=== PATIENT | male | born 1960 | race Caucasian/White ===

== ENCOUNTER 2017-03-13 18:12 | Emergency (ER) | payer OTHER ==
[~2017-03-13] VITALS: Ht 182.9 cm; Wt 83.9 kg
--- NOTE | 2017-03-13 18:25 | NUR ---
pt awake now, smiling, and confirming his name. reluctant to give more info at this time. no sign of distress. vs stable.pt eubreathing
[2017-03-13] MEDS ORDERED: VANCOMYCIN IV 1,000 MG in IV DEXTROSE 5% 250 ML IV ONE (19:15)
[2017-03-13] MEDS ORDERED: VANCOMYCIN IV 200 ML ONE (19:32)
[2017-03-13 20:03] LABS: BILIRUBIN,DIRECT 0.1 mg/dL (0.0-0.2); BILIRUBIN,TOTAL 0.3 mg/dL (0.2-1.0); CREATININE 0.7 mg/dL (0.6-1.3); POTASSIUM 3.7 mmol/L (3.5-5.1); TOTAL PROTEIN, SERUM 7.7 g/dL (6.4-8.2)
[2017-03-13 20:39] LABS: HEMATOCRIT 42.9 % (40-50); HEMOGLOBIN 14.4 G/DL (14.0-18.0); MEAN CORPUSCULAR HEMOGLOBIN 33.5 UUG (27.0-31.0); MEAN CORPUSCULAR VOLUME 99.7 FL (82.0-92.0); WHITE BLOOD COUNT (AUTO) 6.3 K/UL (4.0-11.2)
[2017-03-13 20:40] LABS: BASOPHILS % (AUTO) 0.2 % (0.0-2.0); EOSINOPHILS # (AUTO) 0.2 K/uL (0.0-0.7); EOSINOPHILS % (AUTO) 3.2 % (0.0-7.0); LYMPHOCYTES # (AUTO) 1.6 K/UL (0.8-4.8); LYMPHOCYTES % (AUTO) 24.9 % (20.5-51.5); MEAN CORPUSCULAR HGB CONC 34 g/dL (32.0-37.0); MONOCYTES # (AUTO) 0.6 K/UL (0.1-1.30); MONOCYTES % (AUTO) 9.5 % (0.0-11.0); NEUTROPHILS # (AUTO) 3.9 K/UL (1.8-8.9); NEUTROPHILS % (AUTO) 62.2 % (38.5-71.5); PLATELET COUNT (AUTO) 135 K/UL (150-450)
--- NOTE | 2017-03-13 21:11 | NUR ---
Call placed to [facility], Dr. Wells will be paged.
[2017-03-13 21:39] LABS: *BILIRUBIN,URIN NEGATIVE (NEGATIVE); *BLOOD, URINE NEGATIVE (NEGATIVE); *CLARITY,URINE SLIGHTLY CLOUDY (CLEAR); *COLOR,URINE YELLOW (YELLOW); *KETONES,URINE NEGATIVE (NEGATIVE); *PROTEIN,URINE NEGATIVE (NEGATIVE); *UROBILINOGEN,URINE 0.2 E.U./dl (NORMAL); LEUKOCYTE ESTERASE ,URINE NEGATIVE (NEGATIVE); NITRITE, URINE NEGATIVE (NEGATIVE); PH,URINE 5.5 (5.0-8.0); UGLUCOSE NEGATIVE (NEGATIVE)
[2017-03-13 21:44] LABS: BACTERIA,URINE NONE SEEN /HPF (NONE SEEN); RBC,URINE 0-3 /HPF (0-3); SQUAMOUS EPITHELIAL CELL,UR NONE SEEN /HPF (NONE SEEN); WBC,URINE 0-3 /HPF (0-3)
--- NOTE | 2017-03-13 22:23 | NUR ---
Patient's insurance is capitated to [facility] [place] speaking with designated MD (per insurance) regarding transfer or acceptance authorization.
--- NOTE | 2017-03-13 22:43 | NUR ---
Kumar escobedo in [facility] - 03/13/17 at 2244 by LETA Patient's clinical information faxed to Syed Whiting
--- NOTE | 2017-03-13 22:52 | NUR ---
Patient awake at this time, able to answer questions and follow commands, A/O x4, confused regarding how he was transported to the hospital. Patient remains intoxicated, education provided regarding his transportation to this hospital as well as his pending transfer to another hospital provided. Patient requested water, provided.
--- NOTE | 2017-03-13 23:28 | NUR ---
Call placed to [facility] regarding transfer, awaiting bed assignment at this time. They will contact this ER when a bed assignment is given.
--- NOTE | 2017-03-14 00:20 | NUR ---
Call placed to [facility] for transportation, ETA 3 hours.
--- NOTE | 2017-03-14 00:30 | NUR ---
Call placed to [employer] ([facility]), ETA 2 hours. Authorization Number [id number].
--- NOTE | 2017-03-14 02:26 | NUR ---
Patient Tranfers to outside Facility Physician: Dr. Rodney Location: [facility]
--- NOTE | 2017-03-14 02:41 | NUR ---
GAVE SBAR REPORT TO KARLA CHARGE NURSE FROM [facility]
== END 2017-03-14 02:43 | disposition short-term general hospital (02) ==
LOC: ER 18:14 → EDBD 18:14 → ER 03-14 02:43
DX: L03.113 Cellulitis of right upper limb (principal)
CPT/HCPCS: 36415; 70030-TC; 71010; 73090; 85025; 87086; 93005; A4663; G0480; J3370

== ENCOUNTER 2017-05-14 13:53 | Emergency (ER) | payer OTHER ==
[~2017-05-14] VITALS: Ht 172.7 cm; Wt 81.6 kg
[2017-05-14] MEDS ORDERED: PANTOPRAZOLE SODIUM 40 MG VIAL IV ONE (15:00)
[2017-05-14] MEDS ORDERED: IV NORMAL SALINE 1000 ML BAG IV ONE (15:00)
[2017-05-14] MEDS ORDERED: KETOROLAC TROMETHAMINE 30 MG INJ IVP ONE (15:00)
[2017-05-14] MEDS ORDERED: ALBUTEROL SULFATE 2.5 MG/3 ML NEBU NEB ONE (15:15)
[2017-05-14 15:25] LABS: BASOPHILS % (AUTO) 0.6 % (0.0-2.0); EOSINOPHILS # (AUTO) 0.1 K/uL (0.0-0.7); EOSINOPHILS % (AUTO) 0.8 % (0.0-7.0); HEMATOCRIT 48.3 % (40-50); HEMOGLOBIN 16.8 G/DL (14.0-18.0); LYMPHOCYTES # (AUTO) 1.6 K/UL (0.8-4.8); LYMPHOCYTES % (AUTO) 21.4 % (20.5-51.5); MEAN CORPUSCULAR HEMOGLOBIN 34.3 UUG (27.0-31.0); MEAN CORPUSCULAR HGB CONC 35 g/dL (32.0-37.0); MEAN CORPUSCULAR VOLUME 98.6 FL (82.0-92.0); MONOCYTES # (AUTO) 0.4 K/UL (0.1-1.30); MONOCYTES % (AUTO) 5.6 % (0.0-11.0); NEUTROPHILS # (AUTO) 5.6 K/UL (1.8-8.9); NEUTROPHILS % (AUTO) 71.6 % (38.5-71.5); PLATELET COUNT (AUTO) 206 K/UL (150-450); WHITE BLOOD COUNT (AUTO) 7.7 K/UL (4.0-11.2)
[2017-05-14] MEDS ORDERED: ALBUTEROL SULFATE 2.5 MG/3 ML NEBU ONE (15:29)
[2017-05-14 15:32] LABS: CREATININE 0.9 mg/dL (0.6-1.3); POTASSIUM 3.9 mmol/L (3.5-5.1)
[2017-05-14 15:38] LABS: BILIRUBIN,DIRECT 0.2 mg/dL (0.0-0.2); BILIRUBIN,TOTAL 0.9 mg/dL (0.2-1.0); TOTAL PROTEIN, SERUM 7.9 g/dL (6.4-8.2)
[2017-05-14] MEDS ORDERED: KETOROLAC TROMETHAMINE 30 MG INJ ONE (15:42)
[2017-05-14] MEDS ORDERED: PANTOPRAZOLE SODIUM 40 MG VIAL ONE (15:42)
--- NOTE | 2017-05-14 16:13 | NUR ---
Patient discharged to home in stable conditon. Written and verbal after care instructions given. Patient verbalizes understanding of instructions.pt says feels btter, requesting to be d/tanya. pt walks in steady gait, eubreathing.
[2017-05-14 16:14] VITALS: BP 101/81
[2017-05-14 16:25] LABS: *BILIRUBIN,URIN NEGATIVE (NEGATIVE); *BLOOD, URINE NEGATIVE (NEGATIVE); *CLARITY,URINE CLEAR (CLEAR); *COLOR,URINE YELLOW (YELLOW); *KETONES,URINE NEGATIVE (NEGATIVE); *PROTEIN,URINE NEGATIVE (NEGATIVE); *UROBILINOGEN,URINE 0.2 E.U./dl (NORMAL); LEUKOCYTE ESTERASE ,URINE NEGATIVE (NEGATIVE); NITRITE, URINE NEGATIVE (NEGATIVE); PH,URINE 7.5 (5.0-8.0); UGLUCOSE NEGATIVE (NEGATIVE)
[2017-05-14 17:15] LABS: MUCUS,URINE FEW /LPF (0-FEW); WBC,URINE 0-3 /HPF (0-3)
== END 2017-07-05 12:12 | disposition home or self-care (01) ==
LOC: ER 13:53
DX: K29.20 Alcoholic gastritis without bleeding (principal); J20.9 Acute bronchitis, unspecified; J44.0 Chronic obstructive pulmonary disease with (acute) lower respiratory infection; J44.1 Chronic obstructive pulmonary disease with (acute) exacerbation; F10.129 Alcohol abuse with intoxication, unspecified; F17.210 Nicotine dependence, cigarettes, uncomplicated
CPT/HCPCS: 36415; 70030-TC; 71010; 83690; 85025; 85730; 87086; 93005; A4663; C9113; G0480; J1885; J7030

== ENCOUNTER 2017-05-21 21:29 | Emergency (ER) | payer OTHER ==
[~2017-05-21] VITALS: Ht 172.7 cm; Wt 77.1 kg
[2017-05-21] MEDS ORDERED: IPRATROPIUM BROMIDE 0.5 MG/2.5 ML NEBU NEB ONE (22:00)
[2017-05-21] MEDS ORDERED: methylPREDNISolone SOD SUCC 125 MG/2 ML VIAL IV ONE (22:00)
[2017-05-21] MEDS ORDERED: ALBUTEROL SULFATE 2.5 MG/3 ML NEBU NEB ONE (22:00)
[2017-05-21] MEDS ORDERED: ALBUTEROL SULFATE 2.5 MG/ 0.5 ML NEBU ONE (22:12)
[2017-05-21] MEDS ORDERED: IPRATROPIUM BROMIDE 0.5 MG/2.5 ML NEBU ONE (22:12)
[2017-05-21] MEDS ORDERED: methylPREDNISolone SOD SUCC 125 MG/2 ML VIAL ONE (22:13)
[2017-05-21 22:19] LABS: BASOPHILS # (AUTO) 0.1 K/uL (0.0-8.0); BASOPHILS % (AUTO) 1.6 % (0.0-2.0); EOSINOPHILS # (AUTO) 0.3 K/uL (0.0-0.7); EOSINOPHILS % (AUTO) 5.4 % (0.0-7.0); HEMATOCRIT 45.2 % (40-50); LYMPHOCYTES # (AUTO) 1.8 K/UL (0.8-4.8); LYMPHOCYTES % (AUTO) 28.7 % (20.5-51.5); MEAN CORPUSCULAR HEMOGLOBIN 34.7 UUG (27.0-31.0); MEAN CORPUSCULAR HGB CONC 36 g/dL (32.0-37.0); MEAN CORPUSCULAR VOLUME 97.9 FL (82.0-92.0); MONOCYTES # (AUTO) 0.7 K/UL (0.1-1.30); NEUTROPHILS # (AUTO) 3.4 K/UL (1.8-8.9); NEUTROPHILS % (AUTO) 53.3 % (38.5-71.5); PLATELET COUNT (AUTO) 222 K/UL (150-450); RED BLOOD CELL COUNT(AUTO) 4.62 MIL/UL (4.7-6.1); WHITE BLOOD COUNT (AUTO) 6.3 K/UL (4.0-11.2)
[2017-05-21 22:26] LABS: ETHANOL 26 MG/DL (0-0)
[2017-05-21 22:28] LABS: CARBON DIOXIDE 26 mmol/L (21-32); CHLORIDE 101 mmol/L (98-107); CREATININE 0.7 mg/dL (0.6-1.3); GLUCOSE 86 mg/dL (74-106); POTASSIUM 3.8 mmol/L (3.5-5.1); UREA NITROGEN, BLOOD 12 mg/dL (7-18)
[2017-05-21 22:33] LABS: ALANINE AMINOTRANSFERASE 54 U/L (16-63); ALKALINE PHOSPHATASE 140 U/L (50-136); ASPARTATE AMINOTRANSFERASE 43 U/L (15-37); BILIRUBIN,DIRECT 0.1 mg/dL (0.0-0.2); BILIRUBIN,TOTAL 0.6 mg/dL (0.2-1.0); TOTAL PROTEIN, SERUM 7.5 g/dL (6.4-8.2)
[2017-05-21 22:34] LABS: ACETAMINOPHEN < 2.0 ug/mL (10-30)
[2017-05-21 22:40] LABS: THYROID STIMULATING HORMONE 1.063 mIU/mL (0.358-3.740)
--- NOTE | 2017-05-21 22:44 | NUR ---
SPOKE TO EDUARDO, CLINICAL SOCIOLOGIST ON-CALL CLINICIAN. WILL SEE PATIENT SHORTLY.
[2017-05-21 23:13] LABS: *BILIRUBIN,URIN NEGATIVE (NEGATIVE); *BLOOD, URINE NEGATIVE (NEGATIVE); *CLARITY,URINE CLEAR (CLEAR); *COLOR,URINE YELLOW (YELLOW); *KETONES,URINE NEGATIVE (NEGATIVE); *PROTEIN,URINE NEGATIVE (NEGATIVE); *UROBILINOGEN,URINE 0.2 E.U./dl (NORMAL); LEUKOCYTE ESTERASE ,URINE NEGATIVE (NEGATIVE); NITRITE, URINE NEGATIVE (NEGATIVE); PH,URINE 6.5 (5.0-8.0); UGLUCOSE NEGATIVE (NEGATIVE)
--- NOTE | 2017-05-21 23:28 | NUR ---
EDUARDO HERE TO EVALUATE PATIENT.
[2017-05-21 23:34] LABS: BACTERIA,URINE NONE SEEN /HPF (NONE SEEN); RBC,URINE 0-3 /HPF (0-3); SQUAMOUS EPITHELIAL CELL,UR NONE SEEN /HPF (NONE SEEN); WBC,URINE 0-3 /HPF (0-3)
[2017-05-21 23:38] LABS: *AMPHETAMINE, URINE NEGATIVE (NEGATIVE); *BARBITURATE, URINE NEGATIVE (NEGATIVE); *CANNABINOID, URINE NEGATIVE (NEGATIVE); *COCCAINE, URINE NEGATIVE (NEGATIVE); *OPIATE, URINE NEGATIVE (NEGATIVE); *PHENCYCLIDINE SCREEN,URINE NEGATIVE (NEGATIVE)
--- NOTE | 2017-05-22 00:02 | NUR ---
PATIENT ATTMEPTED TO WALK OUT THE ER, CAR KEYS TAKEN FROM PATIENT AT THIS TIME.
--- NOTE | 2017-05-22 00:02 | NUR ---
[employer] CALLED FOR PATIENT.
--- NOTE | 2017-05-22 00:15 | NUR ---
Patient discharged to home in stable conditon. Written and verbal after care instructions given. Patient verbalizes understanding of instructions. PATIENT DC'D WITH [facility].
--- NOTE | 2017-05-22 00:19 | NUR ---
[facility] HERE AND PICKED UP PATIENT. KEYS PROVIDED TO PATIENT.
[2017-05-22 00:21] VITALS: BP 116/80
== END 2017-05-22 00:22 | disposition home or self-care (01) ==
LOC: ER 21:36
DX: T42.71XA Poisoning by unspecified antiepileptic and sedative-hypnotic drugs, accidental (unintentional), initial encounter (principal); F10.20 Alcohol dependence, uncomplicated; J98.01 Acute bronchospasm; F17.210 Nicotine dependence, cigarettes, uncomplicated; F41.9 Anxiety disorder, unspecified; J44.9 Chronic obstructive pulmonary disease, unspecified; R06.00 Dyspnea, unspecified; Y92.89 Other specified places as the place of occurrence of the external cause
CPT/HCPCS: 36415; 71010; 80048; 80076; 80307; 81001; 83880; 84443; 84484; 85025; 85379; 93005; 94640; 96374; 99285; 99406; A4663; G0480 ×2; G0481; J2930; J3590; 70030-TC

== ENCOUNTER 2017-08-31 05:58 | Inpatient (IN) | payer OTHER ==
[~2017-08-31] VITALS: Ht 177.8 cm; Wt 77.1 kg
[2017-08-31] MEDS ORDERED: ADVAIR DISKU (06:09)
[2017-08-31] MEDS ORDERED: ALPRAZOLAM 2 MG TABLET (06:10)
[2017-08-31] MEDS ORDERED: HYDROCODONE APAP (06:10)
[2017-08-31] MEDS ORDERED: ADVAIR 250/50 DISKUS (06:10)
[2017-08-31] MEDS ORDERED: CITALOPRAM 20 MG (06:10)
[2017-08-31] MEDS ORDERED: ALBUTEROL SULFATE 2.5 MG/ 0.5 ML NEBU ONE (06:22)
[2017-08-31] MEDS ORDERED: IPRATROPIUM BROMIDE 0.5 MG/2.5 ML NEBU ONE (06:22)
[2017-08-31] MEDS ORDERED: ALBUTEROL SULFATE 2.5 MG/3 ML NEBU NEB ONE (06:30)
[2017-08-31] MEDS ORDERED: IPRATROPIUM BROMIDE 0.5 MG/2.5 ML NEBU NEB ONE (06:30)
[2017-08-31] MEDS ORDERED: methylPREDNISolone SOD SUCC 125 MG/2 ML VIAL IV ONE (06:30)
[2017-08-31] MEDS ORDERED: methylPREDNISolone SOD SUCC 125 MG/2 ML VIAL ONE (06:32)
[2017-08-31 06:40] LABS: BASOPHILS % (AUTO) 0.5 % (0.0-2.0); EOSINOPHILS # (AUTO) 0.1 K/uL (0.0-0.7); EOSINOPHILS % (AUTO) 0.6 % (0.0-7.0); HEMOGLOBIN 15.6 g/dL (12.5-16.3); LYMPHOCYTES # (AUTO) 2.2 K/uL (20.0-40.0); LYMPHOCYTES % (AUTO) 25.2 % (20.5-51.5); MEAN CORPUSCULAR HEMOGLOBIN 33.8 uug (23.8-33.4); MEAN CORPUSCULAR HGB CONC 35 g/dL (32.5-36.3); MEAN CORPUSCULAR VOLUME 95.5 fL (73.0-96.2); MONOCYTES # (AUTO) 0.4 K/uL (2.0-10.0); MONOCYTES % (AUTO) 4.3 % (0.0-11.0); NEUTROPHILS # (AUTO) 6.1 K/uL (1.8-8.9); NEUTROPHILS % (AUTO) 69.4 % (38.5-71.5); PLATELET COUNT (AUTO) 125 K/uL (152-348); WHITE BLOOD COUNT (AUTO) 8.8 K/uL (3.6-10.2)
[2017-08-31] MEDS ORDERED: PANTOPRAZOLE SODIUM 40 MG VIAL IV ONE (06:45)
[2017-08-31] MEDS ORDERED: PANTOPRAZOLE SODIUM 40 MG VIAL ONE (06:51)
[2017-08-31] MEDS ORDERED: ONDANSETRON 4 MG/2 ML VIAL ONE ×2 (06:51→07:14)
[2017-08-31 06:56] LABS: CREATININE 0.9 mg/dL (0.6-1.3); POTASSIUM 3.5 mmol/L (3.5-5.1)
[2017-08-31] MEDS ORDERED: ONDANSETRON 4 MG/2 ML VIAL IV ONE ×2 (07:00→07:15)
[2017-08-31 07:10] LABS: BILIRUBIN,DIRECT 0.3 mg/dL (0.0-0.2); BILIRUBIN,TOTAL 1.3 mg/dL (0.2-1.0); TOTAL PROTEIN, SERUM 7.3 g/dL (6.4-8.2)
[2017-08-31] MEDS ORDERED: IV NORMAL SALINE 100 ML ONE (07:11)
[2017-08-31] MEDS ORDERED: IOHEXOL 350 100 ML INFUS..BTL ONE (07:11)
[2017-08-31] MEDS ORDERED: MORPHINE SULFATE 4 MG/1 ML DISP.SYRIN ONE (07:14)
[2017-08-31] MEDS ORDERED: IV NORMAL SALINE 1000 ML BAG IV ONE (07:15)
[2017-08-31] MEDS ORDERED: MORPHINE SULFATE 4 MG/1 ML DISP.SYRIN IV ONE (07:15)
[2017-08-31] MEDS ORDERED: HYDROMORPHONE 4 MG/1 ML DISP.SYRIN ONE (09:38)
[2017-08-31] MEDS ORDERED: HYDROMORPHONE 1 MG/1 ML DISP.SYRIN IV ONE (09:45)
[2017-08-31 11:09] LABS: *BILIRUBIN,URIN NEGATIVE (NEGATIVE); *BLOOD, URINE Trace-lysed (NEGATIVE); *CLARITY,URINE CLEAR (CLEAR); *COLOR,URINE YELLOW (YELLOW); *KETONES,URINE 2+ (NEGATIVE); *PROTEIN,URINE TRACE (NEGATIVE); *UROBILINOGEN,URINE 0.2 E.U./dl (NORMAL); LEUKOCYTE ESTERASE ,URINE NEGATIVE (NEGATIVE); NITRITE, URINE NEGATIVE (NEGATIVE); UGLUCOSE NEGATIVE (NEGATIVE)
[2017-08-31 11:15] LABS: BACTERIA,URINE FEW /HPF (NONE SEEN); RBC,URINE 0-3 /HPF (0-3); SQUAMOUS EPITHELIAL CELL,UR FEW /HPF (NONE SEEN); WBC,URINE 0-3 /HPF (0-3)
[2017-08-31 11:40] VITALS: BP 147/72
[2017-08-31] MEDS ORDERED: LORAZEPAM 2 MG/1 ML VIAL IV SCH (13:45)
[2017-08-31] MEDS ORDERED: HYDROMORPHONE 1 MG/1 ML DISP.SYRIN IV PRN (13:45)
[2017-08-31] MEDS ORDERED: ONDANSETRON 4 MG/2 ML VIAL IV PRN (13:45)
[2017-08-31] MEDS ORDERED: ZOLPIDEM 5 MG TABLET PO PRN (13:45)
[2017-08-31] MEDS ORDERED: POTASSIUM CHLORIDE 20 MEQ in IV D5 1/2 NS 1000 ML 1,000 ML IV PRN (13:45)
[2017-08-31] MEDS ORDERED: ACETAMINOPHEN 325 MG TABLET PO PRN (13:45)
[2017-08-31] MEDS ORDERED: HYDROMORPHONE 4 MG/1 ML DISP.SYRIN IV PRN (14:00)
[2017-08-31 14:17] LABS: *AMPHETAMINE, URINE NEGATIVE (NEGATIVE); *BARBITURATE, URINE NEGATIVE (NEGATIVE); *CANNABINOID, URINE NEGATIVE (NEGATIVE); *COCCAINE, URINE NEGATIVE (NEGATIVE); *OPIATE, URINE POSITIVE (NEGATIVE); *PHENCYCLIDINE SCREEN,URINE NEGATIVE (NEGATIVE)
[2017-08-31 15:16] VITALS: BP 130/74
[2017-08-31] MEDS ORDERED: MORPHINE SULFATE 4 MG/1 ML DISP.SYRIN IV PRN (17:00)
[2017-08-31] MEDS ORDERED: FAMOTIDINE. 20 MG/2 ML VIAL IV SCH (21:00)
[2017-09-01] MEDS ORDERED: FOLIC ACID 1 MG TABLET PO SCH (09:00)
[2017-09-01] MEDS ORDERED: THIAMINE HCL 100 MG TABLET PO SCH (09:00)
[2017-09-01] MEDS ORDERED: MULTIVITAMINS,THERAPEUTIC TABLET PO SCH (09:00)
== END 2017-08-31 17:00 | disposition left against medical advice (07) | DRG 282 ==
LOC: ER 06:00 → MED 11:04 → TELE 11:09
PROVIDERS: ADMIT Internal Medicine; ATTEND Internal Medicine
DX: K85.20 Alcohol induced acute pancreatitis without necrosis or infection (principal); J84.9 Interstitial pulmonary disease, unspecified; I31.3 Pericardial effusion (noninflammatory); D69.6 Thrombocytopenia, unspecified; J44.1 Chronic obstructive pulmonary disease with (acute) exacerbation; J84.10 Pulmonary fibrosis, unspecified; K76.0 Fatty (change of) liver, not elsewhere classified; M43.16 Spondylolisthesis, lumbar region; F17.200 Nicotine dependence, unspecified, uncomplicated; J45.909 Unspecified asthma, uncomplicated; K22.9 Disease of esophagus, unspecified; F10.239 Alcohol dependence with withdrawal, unspecified; F10.229 Alcohol dependence with intoxication, unspecified; K29.20 Alcoholic gastritis without bleeding; F41.9 Anxiety disorder, unspecified; F32.9 Major depressive disorder, single episode, unspecified; Y90.3 Blood alcohol level of 60-79 mg/100 ml; F17.210 Nicotine dependence, cigarettes, uncomplicated
CPT/HCPCS: 36415; 70030-TC; 71045; 71275; 80307; 83690; 85025; 93005; A4663; C9113; G0480; J1170; J2060; J2270; J2405; J2930; J3480; J3490; J3590; J7040; Q9967

== ENCOUNTER 2017-10-02 08:45 | Emergency (ER) | payer OTHER ==
[~2017-10-02] VITALS: Ht 177.8 cm; Wt 77.1 kg
[~2017-10-02 08:45] MED LIST: ADVAIR 250/50 DISKUS; ADVAIR DISKU; ALPRAZOLAM 2 MG TABLET; CITALOPRAM 20 MG; HYDROCODONE APAP
[2017-10-02] MEDS ORDERED: LIDOCAINE HCL 2% 20 ML VIAL ONE (08:55)
[2017-10-02] MEDS ORDERED: LIDOCAINE HCL 1% 20 ML VIAL TP ONE (09:00)
--- NOTE | 2017-10-02 09:14 | NUR ---
MSE COMPLETED, PT D/C'D GHOME/ACI GIVEN, PT AMBULATED W/O DIFF/TOOK ALL BELONGINGS.
[2017-10-02 09:15] VITALS: BP 117/61
== END 2017-10-02 09:05 | disposition home or self-care (01) ==
LOC: ER 08:45
DX: S61.216A Laceration without foreign body of right little finger without damage to nail, initial encounter (principal); J45.909 Unspecified asthma, uncomplicated; F17.210 Nicotine dependence, cigarettes, uncomplicated; Z79.899 Other long term (current) drug therapy; Z79.891 Long term (current) use of opiate analgesic; W26.8XXA Contact with other sharp object(s), not elsewhere classified, initial encounter; Y93.89 Activity, other specified; Y92.89 Other specified places as the place of occurrence of the external cause; Y99.8 Other external cause status
CPT/HCPCS: A4217; A4663; J3490

== ENCOUNTER 2017-10-25 23:21 | Emergency (ER) | payer OTHER ==
[~2017-10-25] VITALS: Ht 172.7 cm; Wt 79.4 kg
--- NOTE | 2017-10-25 23:39 | NUR ---
DR. PRIETO AT BEDSIDE FOR MSE.
[2017-10-25 23:45] LABS: BASOPHILS # (AUTO) 0.1 K/uL (0.0-8.0); BASOPHILS % (AUTO) 1.2 % (0.0-2.0); EOSINOPHILS % (AUTO) 0.3 % (0.0-7.0); HEMOGLOBIN 16.7 g/dL (12.5-16.3); LYMPHOCYTES # (AUTO) 2.1 K/uL (20.0-40.0); LYMPHOCYTES % (AUTO) 28.7 % (20.5-51.5); MEAN CORPUSCULAR HEMOGLOBIN 34.4 uug (23.8-33.4); MEAN CORPUSCULAR HGB CONC 36 g/dL (32.5-36.3); MEAN CORPUSCULAR VOLUME 96.7 fL (73.0-96.2); MONOCYTES # (AUTO) 0.4 K/uL (2.0-10.0); MONOCYTES % (AUTO) 5.8 % (0.0-11.0); NEUTROPHILS # (AUTO) 4.7 K/uL (1.8-8.9); PLATELET COUNT (AUTO) 192 K/uL (152-348); RED BLOOD CELL COUNT(AUTO) 4.86 MIL/uL (4.06-5.63); WHITE BLOOD COUNT (AUTO) 7.4 K/uL (3.6-10.2)
--- NOTE | 2017-10-25 23:45 | NUR ---
PT AMBULATED TO ER WITH C/O BODY ACHE ALL OVER AND STATES "DOESN'T FEEL GOOD." AAOX3. ABLE TO SPEAK IN COMPLETE SENTENCES. SPEECH CLEAR. RESPONDS TO VERBAL + TACTILE STIMULI. RESPIRATIONS EVEN + UNLABORED. DENIES SOB/COUGH/CONGESTION. DENIES FEVER/CHILLS. DENIES CHEST PAIN. PT RESPIRATIONS EVEN + UNLABORED. SA02 95% ON 2L 02 VIA NC. Addendum: 10/26/17 at 0639 by TPADOLINA PT AMBULATED TO ER WITH C/O BODY ACHE ALL OVER AND STATES "DOESN'T FEEL GOOD." AAOX3. ABLE TO SPEAK IN COMPLETE SENTENCES. PT SMELLS OF ALCOHOL. SPEECH CLEAR. RESPONDS TO VERBAL + TACTILE STIMULI. RESPIRATIONS EVEN + UNLABORED. DENIES SOB/COUGH/CONGESTION. DENIES FEVER/CHILLS. DENIES CHEST PAIN. PT RESPIRATIONS EVEN + UNLABORED. SA02 95% ON 2L 02 VIA NC.
[2017-10-26 00:18] LABS: BILIRUBIN,DIRECT 0.3 mg/dL (0.0-0.2); BILIRUBIN,TOTAL 1.2 mg/dL (0.2-1.0); CREATININE 0.9 mg/dL (0.6-1.3); POTASSIUM 3.4 mmol/L (3.5-5.1); TOTAL PROTEIN, SERUM 7.9 g/dL (6.4-8.2)
--- NOTE | 2017-10-26 00:45 | NUR ---
PT TRYING TO GET OUT OF BED. PT BEING UNCOOPERATIVE WITH STAFF
[2017-10-26] MEDS ORDERED: LORAZEPAM 2 MG/1 ML VIAL ONE ×2 (00:48→02:04)
[2017-10-26] MEDS: LORAZEPAM 2 MG/1 ML VIAL IV ONE ×2 (00:51→02:04)
--- NOTE | 2017-10-26 00:57 | NUR ---
PT RESTING COMFORTABLY IN BED WITH EYES CLOSED. SA02 95% ON 2L O2 VIA NC.
[2017-10-26] MEDS: IV NORMAL SALINE 1000 ML BAG IV ONE (01:10)
--- NOTE | 2017-10-26 02:00 | NUR ---
PT UNCOOPERATIVE AND TRYING TO GET OUT OF BED. PT HAS UNSTEADY GAIT.
[2017-10-26] MEDS ORDERED: diphenhydrAMINE 50 MG/1 ML VIAL ONE (02:04)
[2017-10-26] MEDS ORDERED: HALOPERIDOL LACTATE 5 MG/1 ML VIAL ONE (02:04)
[2017-10-26] MEDS: HALOPERIDOL LACTATE 5 MG/1 ML VIAL IV ONE (02:06)
[2017-10-26] MEDS: diphenhydrAMINE 50 MG/1 ML VIAL IV ONE (02:08)
--- NOTE | 2017-10-26 02:20 | NUR ---
PT LEFT ER FOR CT SCAN & XRAY. VSS.
--- NOTE | 2017-10-26 02:40 | NUR ---
PT BACK FROM RADIOLOGY DEPT.
--- NOTE | 2017-10-26 03:16 | NUR ---
PT RESTING COMFORTABLY IN BED WITH EYES CLOSED. VSS. AWAITING TEST RESULTS.
--- NOTE | 2017-10-26 04:30 | NUR ---
PT IS READY TO BE DISCHARGED ONCE EFECTS OF MEDICATION WEARS OFF.
--- NOTE | 2017-10-26 05:30 | NUR ---
PT RESTING COMFORTABLY IN BED WITH EYES CLOSED. VSS.
--- NOTE | 2017-10-26 06:30 | NUR ---
PT RESTING COMFORTABLY IN BED WITH EYES CLOSED. VSS. WAITING FOR PT TO SOBER UP SO HE CAN BE SAFELY DISCHARGED.
--- NOTE | 2017-10-26 07:13 | NUR ---
HANDOFF REPORT TO SEFERINO MEDRANO.
--- NOTE | 2017-10-26 07:30 | NUR ---
Recieved report from Yuri MEDRANO. Pt is very drowsy and so sound asleep. Still very groggy and unable to walk stabley. wanted to sleep more.
--- NOTE | 2017-10-26 08:20 | NUR ---
Ate good breakfast and tolerated well. discharge instruction given with good understanding.
--- NOTE | 2017-10-26 08:40 | NUR ---
Heplock removed on the right AC. Discharged ambulatory, Pt stated he will take a taxi cab home. Condition is stable.
[2017-10-26 09:07] VITALS: BP 140/85
== END 2017-10-26 08:40 | disposition home or self-care (01) ==
LOC: ER 23:22
DX: F10.129 Alcohol abuse with intoxication, unspecified (principal); R10.9 Unspecified abdominal pain; J45.909 Unspecified asthma, uncomplicated; F17.210 Nicotine dependence, cigarettes, uncomplicated; Z79.891 Long term (current) use of opiate analgesic; Z79.899 Other long term (current) drug therapy
CPT/HCPCS: 36415; 70030-TC; 71045; 83605; 83690; 85025; 85730; 87040; 93005; A4663; J1200; J1630; J2060; J7030

== ENCOUNTER 2017-10-28 01:56 | Emergency (ER) | payer OTHER ==
[~2017-10-28] VITALS: Ht 177.8 cm; Wt 77.1 kg
--- NOTE | 2017-10-28 02:33 | NUR ---
PT IN BED. MD EDWARD AT BEDSIDE CONDUCTING MD CHIRINOS.
[2017-10-28] MEDS ORDERED: ALBUTEROL SULFATE 2.5 MG/ 0.5 ML NEBU NEB ONE (02:38)
[2017-10-28] MEDS ORDERED: IV NORMAL SALINE 500 ML IV ONE (02:45)
[2017-10-28] MEDS ORDERED: IPRATROPIUM BROMIDE 0.5 MG/2.5 ML NEBU NEB ONE (02:45)
[2017-10-28] MEDS ORDERED: ONDANSETRON IV *ER 4 MG/2 ML VIAL IV ONE (02:45)
[2017-10-28] MEDS ORDERED: PANTOPRAZOLE SODIUM IV 40 MG in IV DEXTROSE 5% 100 ML IV ONE (02:45)
[2017-10-28] MEDS ORDERED: IPRATROPIUM BROMIDE 0.5 MG/2.5 ML NEBU ONE (02:52)
[2017-10-28] MEDS ORDERED: ALBUTEROL SULFATE 2.5 MG/ 0.5 ML NEBU ONE (02:52)
[2017-10-28] MEDS ORDERED: methylPREDNISolone SOD SUCC 125 MG/2 ML VIAL IV ONE (03:00)
[2017-10-28 03:05] LABS: BASOPHILS # (AUTO) 0.1 K/uL (0.0-8.0); EOSINOPHILS # (AUTO) 0.2 K/uL (0.0-0.7); EOSINOPHILS % (AUTO) 2.4 % (0.0-7.0); HEMOGLOBIN 14.2 g/dL (12.5-16.3); LYMPHOCYTES # (AUTO) 1.8 K/uL (20.0-40.0); LYMPHOCYTES % (AUTO) 22.9 % (20.5-51.5); MEAN CORPUSCULAR VOLUME 96.1 fL (73.0-96.2); MONOCYTES # (AUTO) 0.6 K/uL (2.0-10.0); MONOCYTES % (AUTO) 7.2 % (0.0-11.0); NEUTROPHILS # (AUTO) 5.1 K/uL (1.8-8.9); NEUTROPHILS % (AUTO) 66.5 % (38.5-71.5); PLATELET COUNT (AUTO) 101 K/uL (152-348); RED BLOOD CELL COUNT(AUTO) 4.06 MIL/uL (4.06-5.63); WHITE BLOOD COUNT (AUTO) 7.7 K/uL (3.6-10.2)
[2017-10-28] MEDS ORDERED: ONDANSETRON 4 MG/2 ML VIAL ONE (03:26)
[2017-10-28] MEDS ORDERED: PANTOPRAZOLE SODIUM 40 MG VIAL ONE (03:26)
[2017-10-28] MEDS ORDERED: methylPREDNISolone SOD SUCC 125 MG/2 ML VIAL ONE (03:27)
[2017-10-28 03:30] LABS: BILIRUBIN,TOTAL 1.4 mg/dL (0.2-1.0); CREATININE 0.8 mg/dL (0.6-1.3); POTASSIUM 3.5 mmol/L (3.5-5.1); TOTAL PROTEIN, SERUM 7.3 g/dL (6.4-8.2)
--- NOTE | 2017-10-28 03:45 | NUR ---
PT IN BED RESTING WITH EYES CLOSED. BREATH SOUNDS EVEN AND UNLABORED. NO SIGNS OF DISTRESS WITNESSED AT THIS TIME.
[2017-10-28 03:51] LABS: MEAN CORPUSCULAR HGB CONC 36 g/dL (32.5-36.3)
[2017-10-28 03:57] LABS: *BILIRUBIN,URIN NEGATIVE (NEGATIVE); *BLOOD, URINE NEGATIVE (NEGATIVE); *CLARITY,URINE CLEAR (CLEAR); *KETONES,URINE NEGATIVE (NEGATIVE); *PROTEIN,URINE NEGATIVE (NEGATIVE); *UROBILINOGEN,URINE 0.2 E.U./dl (NORMAL); LEUKOCYTE ESTERASE ,URINE NEGATIVE (NEGATIVE); NITRITE, URINE NEGATIVE (NEGATIVE); UGLUCOSE NEGATIVE (NEGATIVE)
[2017-10-28 04:05] LABS: *COLOR,URINE STRAW (YELLOW)
[2017-10-28 04:07] LABS: BACTERIA,URINE NONE SEEN /HPF (NONE SEEN); RBC,URINE NONE SEEN /HPF (0-3); SQUAMOUS EPITHELIAL CELL,UR FEW /HPF (NONE SEEN); WBC,URINE NONE SEEN /HPF (0-3)
[2017-10-28] MEDS ORDERED: HYDROCODONE/APAP 5-325MG TABLET PO ONE (05:17)
[2017-10-28] MEDS ORDERED: HYDROCODONE/APAP 5-325MG TABLET ONE (05:28)
--- NOTE | 2017-10-28 05:30 | NUR ---
Patient discharged to home in stable conditon. Written and verbal after care instructions given. Patient verbalizes understanding of instructions. Patient reported reduced abdominal pain prior to discharge. Patient able to ambulate unassisted with steady gait. Patient left with all personal belongings.
[2017-10-28 06:19] VITALS: BP 132/49
== END 2017-10-28 05:30 | disposition home or self-care (01) ==
LOC: ER 01:58
DX: J44.1 Chronic obstructive pulmonary disease with (acute) exacerbation (principal); R10.13 Epigastric pain; G89.29 Other chronic pain; R94.31 Abnormal electrocardiogram [ECG] [EKG]; F17.210 Nicotine dependence, cigarettes, uncomplicated; Z79.891 Long term (current) use of opiate analgesic; Z79.899 Other long term (current) drug therapy
CPT/HCPCS: 36415; 70030-TC; 83690; 85025; 85610; 93005; A4663; C9113; J2405; J2930; J3590; J7030; J7060

== ENCOUNTER 2017-12-11 19:00 | Emergency (ER) | payer OTHER ==
[~2017-12-11] VITALS: Ht 177.8 cm; Wt 77.1 kg
--- NOTE | 2017-12-11 19:30 | NUR ---
DR. GUTIERREZ AT BEDSIDE FOR MSE.
[2017-12-11] MEDS ORDERED: IV NORMAL SALINE 1000 ML BAG IV ONE (19:45)
[2017-12-11] MEDS ORDERED: ONDANSETRON ODT 4 MG TAB.RAPDIS SL ONE (19:45)
[2017-12-11] MEDS ORDERED: MORPHINE SULFATE 2 MG/1 ML DISP.SYRIN IV ONE (19:45)
[2017-12-11] MEDS ORDERED: PANTOPRAZOLE SODIUM 40 MG VIAL IV ONE (19:45)
[2017-12-11 19:50] LABS: *BILIRUBIN,URIN NEGATIVE (NEGATIVE); *BLOOD, URINE NEGATIVE (NEGATIVE); *CLARITY,URINE CLEAR (CLEAR); *COLOR,URINE LIGHT YELLOW (YELLOW); *KETONES,URINE NEGATIVE (NEGATIVE); *PROTEIN,URINE NEGATIVE (NEGATIVE); *UROBILINOGEN,URINE 0.2 E.U./dl (NORMAL); LEUKOCYTE ESTERASE ,URINE NEGATIVE (NEGATIVE); NITRITE, URINE NEGATIVE (NEGATIVE); UGLUCOSE NEGATIVE (NEGATIVE)
[2017-12-11] MEDS ORDERED: ONDANSETRON 4 MG/2 ML VIAL ONE (19:54)
[2017-12-11] MEDS ORDERED: MORPHINE SULFATE 4 MG/1 ML DISP.SYRIN ONE (19:54)
[2017-12-11 19:55] LABS: BASOPHILS # (AUTO) 0.1 K/uL (0.0-8.0); EOSINOPHILS # (AUTO) 0.1 K/uL (0.0-0.7); EOSINOPHILS % (AUTO) 2.2 % (0.0-7.0); HEMATOCRIT 45.9 % (36.7-47.1); HEMOGLOBIN 16.5 g/dL (12.5-16.3); LYMPHOCYTES # (AUTO) 1.3 K/uL (20.0-40.0); LYMPHOCYTES % (AUTO) 18.7 % (20.5-51.5); MEAN CORPUSCULAR HEMOGLOBIN 34.9 uug (23.8-33.4); MEAN CORPUSCULAR HGB CONC 36 g/dL (32.5-36.3); MEAN CORPUSCULAR VOLUME 97.5 fL (73.0-96.2); MONOCYTES # (AUTO) 0.7 K/uL (2.0-10.0); MONOCYTES % (AUTO) 9.9 % (0.0-11.0); NEUTROPHILS # (AUTO) 4.5 K/uL (1.8-8.9); NEUTROPHILS % (AUTO) 68.2 % (38.5-71.5); PLATELET COUNT (AUTO) 146 K/uL (152-348); RED BLOOD CELL COUNT(AUTO) 4.71 MIL/uL (4.06-5.63); WHITE BLOOD COUNT (AUTO) 6.7 K/uL (3.6-10.2)
[2017-12-11] MEDS ORDERED: PANTOPRAZOLE SODIUM 40 MG VIAL ONE (19:55)
[2017-12-11 19:56] LABS: BACTERIA,URINE NONE SEEN /HPF (NONE SEEN); RBC,URINE 0-3 /HPF (0-3); SQUAMOUS EPITHELIAL CELL,UR NONE SEEN /HPF (NONE SEEN); WBC,URINE 0-3 /HPF (0-3)
[2017-12-11] MEDS ORDERED: ONDANSETRON ODT 4 MG TAB.RAPDIS ONE (19:56)
[2017-12-11 20:11] LABS: CREATININE 0.9 mg/dL (0.6-1.3); POTASSIUM 3.5 mmol/L (3.5-5.1)
[2017-12-11 20:17] LABS: BILIRUBIN,DIRECT 0.3 mg/dL (0.0-0.2); BILIRUBIN,TOTAL 1.2 mg/dL (0.2-1.0); TOTAL PROTEIN, SERUM 7.9 g/dL (6.4-8.2)
--- NOTE | 2017-12-11 22:00 | NUR ---
IV removed. Catheter intact and site benign. Pressure and 4x4 gauze applied to site. No bleeding noted.
--- NOTE | 2017-12-11 22:01 | NUR ---
Patient discharged to home in stable conditon. Written and verbal after care instructions given. Patient verbalizes understanding of instructions.
[2017-12-11 22:36] VITALS: BP 114/81
== END 2017-12-11 22:00 | disposition home or self-care (01) ==
LOC: ER 19:05
DX: K29.20 Alcoholic gastritis without bleeding (principal); D69.6 Thrombocytopenia, unspecified; J45.909 Unspecified asthma, uncomplicated; F17.210 Nicotine dependence, cigarettes, uncomplicated; Z79.891 Long term (current) use of opiate analgesic; Z79.899 Other long term (current) drug therapy
CPT/HCPCS: 36415; 71045; 80048; 80076; 81001; 83690; 84484; 85025; 85730; 93005; 96361; 96374; 96375; 99285; A4663; C9113; J2270; J7030; Q0162; 70030-TC; J2405

== ENCOUNTER 2018-02-07 11:14 | Inpatient (IN) | payer OTHER ==
[~2018-02-07] VITALS: Ht 170.2 cm; Wt 77.1 kg
[2018-02-07 11:49] LABS: ABG BASE EXCESS 2.4 mmol/L; ABG HCO3 26.1 mmol/L; ABG PCO2 37.4 mmHg (35.0-45.0); ABG PH 7.461 (7.350-7.450); ABG SITE RIGHT RADIAL; ABG TOTAL HEMOGLOBIN 14.3 G/dL (13.5-18.0); COHb 3.2 % (0.5-1.5); MetHb 0.1 % (0.0-1.5); O2Hb 93.2 % (94.0-97.0); VENT MODE ROOM AIR
[2018-02-07 12:04] LABS: BASOPHILS % (AUTO) 0.7 % (0.0-2.0); EOSINOPHILS # (AUTO) 0.2 K/uL (0.0-0.7); HEMOGLOBIN 14.6 g/dL (12.5-16.3); LYMPHOCYTES # (AUTO) 0.9 K/uL (20.0-40.0); LYMPHOCYTES % (AUTO) 16.8 % (20.5-51.5); MEAN CORPUSCULAR HEMOGLOBIN 35.8 uug (23.8-33.4); MEAN CORPUSCULAR HGB CONC 36 g/dL (32.5-36.3); MEAN CORPUSCULAR VOLUME 100.2 fL (73.0-96.2); MONOCYTES # (AUTO) 0.4 K/uL (2.0-10.0); MONOCYTES % (AUTO) 7.1 % (0.0-11.0); NEUTROPHILS # (AUTO) 3.7 K/uL (1.8-8.9); NEUTROPHILS % (AUTO) 71.4 % (38.5-71.5); PLATELET COUNT (AUTO) 150 K/uL (152-348); RED BLOOD CELL COUNT(AUTO) 4.09 MIL/uL (4.06-5.63); WHITE BLOOD COUNT (AUTO) 5.1 K/uL (3.6-10.2)
[2018-02-07 12:13] LABS: CARBON DIOXIDE 27 mmol/L (21-32); CHLORIDE 102 mmol/L (98-107); CREATININE 0.7 mg/dL (0.6-1.3); GLUCOSE 90 mg/dL (74-106); POTASSIUM 3.3 mmol/L (3.5-5.1); UREA NITROGEN, BLOOD 9 mg/dL (7-18)
[2018-02-07 12:17] LABS: ETHANOL < 3 MG/DL (0-0)
[2018-02-07 12:18] LABS: ALANINE AMINOTRANSFERASE 147 U/L (16-63); ALKALINE PHOSPHATASE 86 U/L (50-136); ASPARTATE AMINOTRANSFERASE 232 U/L (15-37); BILIRUBIN,DIRECT 0.4 mg/dL (0.0-0.2); BILIRUBIN,TOTAL 1.7 mg/dL (0.2-1.0); TOTAL PROTEIN, SERUM 6.9 g/dL (6.4-8.2)
[2018-02-07 12:19] LABS: ACETAMINOPHEN < 2.0 ug/mL (10-30)
[2018-02-07 12:31] LABS: THYROID STIMULATING HORMONE 0.882 mIU/mL (0.358-3.740)
[2018-02-07] MEDS ORDERED: HYDR-548 PO (13:14)
[2018-02-07] MEDS ORDERED: CITA20TA19 PO (13:14)
[2018-02-07] MEDS ORDERED: FLUT1DIS28 IH (13:14)
[2018-02-07] MEDS ORDERED: IV NS 1000 ML 1,000 ML IV PRN (14:09)
[2018-02-07] MEDS ORDERED: THIAMINE HCL 200 MG/2 ML VIAL IV ONE ×2 (14:15→14:45)
[2018-02-07] MEDS ORDERED: LORAZEPAM 2 MG/1 ML VIAL IV PRN (14:15)
[2018-02-07] MEDS ORDERED: ONDANSETRON 4 MG/2 ML VIAL IV PRN (14:15)
[2018-02-07] MEDS ORDERED: ACETAMINOPHEN 325 MG TABLET PO PRN (14:15)
[2018-02-07] MEDS ORDERED: MAGNESIUM HYDROXIDE 30 ML LIQUID UDC PO PRN (14:15)
[2018-02-07] MEDS ORDERED: POTASSIUM CHLORIDE 20 MEQ TAB.PRT.SR PO ONE (14:45)
[2018-02-07] MEDS ORDERED: THIAMINE HCL INJ 200 MG in IV DEXTROSE 5% 50 ML IV ONE (14:45)
[2018-02-07 15:44] VITALS: BP 112/70
[2018-02-07 19:40] VITALS: BP 110/67
[2018-02-08] MEDS ORDERED: PANTOPRAZOLE SODIUM 40 MG TABLET.DR PO SCH (07:00)
[2018-02-08] MEDS ORDERED: THIAMINE HCL 100 MG TABLET PO ONE (09:00)
== END 2018-02-07 22:50 | disposition left against medical advice (07) | DRG 421 ==
LOC: ER 11:15 → TELE 14:19
PROVIDERS: ADMIT Nurse Practitioner Acute Care; ATTEND Nurse Practitioner Acute Care
DX: E51.2 Wernicke's encephalopathy (principal); K76.0 Fatty (change of) liver, not elsewhere classified; F10.188 Alcohol abuse with other alcohol-induced disorder; J44.9 Chronic obstructive pulmonary disease, unspecified; F17.210 Nicotine dependence, cigarettes, uncomplicated; S90.821A Blister (nonthermal), right foot, initial encounter; X58.XXXA Exposure to other specified factors, initial encounter; Y92.89 Other specified places as the place of occurrence of the external cause; F41.9 Anxiety disorder, unspecified; E87.6 Hypokalemia; M19.90 Unspecified osteoarthritis, unspecified site; S00.03XA Contusion of scalp, initial encounter; Z79.51 Long term (current) use of inhaled steroids; Y90.0 Blood alcohol level of less than 20 mg/100 ml
CPT/HCPCS: 36415; 36600; 70030-TC; 70450; 71045; 72125; 83605; 84443; 85025; 85730; 87040; 93005; A4663; G0480; G0480-TC; J3411; J7030; J7060

== ENCOUNTER 2018-02-14 14:20 | Emergency (ER) | payer OTHER ==
[~2018-02-14] VITALS: Ht 177.8 cm; Wt 81.6 kg
[~2018-02-14 14:20] MED LIST changes: -ADVAIR 250/50 DISKUS; -ADVAIR DISKU; -ALPRAZOLAM 2 MG TABLET; +CITA20TA19 PO; -CITALOPRAM 20 MG; +FLUT1DIS28 IH; +HYDR-548 PO; -HYDROCODONE APAP
[2018-02-14] MEDS ORDERED: ALPR0.5T8 PO (14:45)
--- NOTE | 2018-02-14 15:36 | NUR ---
PATIENT WAS SEEN BY .. WOUND CARE BY AND Aby WALKER LVN.
[2018-02-14] MEDS ORDERED: NEOMY/BACITRA/POLYMYXIN B OINT UD PACKET TP ONE ×2 (15:45)
--- NOTE | 2018-02-14 15:47 | NUR ---
DC, RX AND FOLLOW UP INSTRUCTIONS GIVEN AND EXPLAINED TO PATIENT WHO STATES HE UNDERSTANDS ALL INSTRUCTIONS.
== END 2018-02-14 15:50 | disposition home or self-care (01) ==
LOC: ER 14:20
DX: S90.821A Blister (nonthermal), right foot, initial encounter (principal); J45.909 Unspecified asthma, uncomplicated; Z71.6 Tobacco abuse counseling; X58.XXXA Exposure to other specified factors, initial encounter; Y93.89 Activity, other specified; Y92.89 Other specified places as the place of occurrence of the external cause; Y99.8 Other external cause status
CPT/HCPCS: A4217; A4663

== ENCOUNTER 2018-04-04 08:32 | Emergency (ER) | payer OTHER ==
[~2018-04-04] VITALS: Ht 167.6 cm; Wt 72.6 kg
[~2018-04-04 08:32] MED LIST changes: +ALPR0.5T8 PO
[2018-04-04] MEDS ORDERED: NEOMY/BACITRA/POLYMYXIN B OINT UD PACKET TP ONE ×2 (08:48→09:00)
--- NOTE | 2018-04-04 08:56 | NUR ---
Patient discharged to home in stable conditon. Written and verbal after care instructions given. Patient verbalizes understanding of instructions.pt insisteing on the but lac to be stiched in spite the md and me explaing to him why it cannot be stiched.
== END 2018-04-04 08:59 | disposition home or self-care (01) ==
LOC: ER 08:32
DX: S31.829D Unspecified open wound of left buttock, subsequent encounter (principal); S91.302D Unspecified open wound, left foot, subsequent encounter; F10.20 Alcohol dependence, uncomplicated; J45.909 Unspecified asthma, uncomplicated; X58.XXXD Exposure to other specified factors, subsequent encounter

== ENCOUNTER 2018-04-11 23:42 | Emergency (ER) | payer OTHER ==
[~2018-04-11] VITALS: Ht 172.7 cm; Wt 63.5 kg
[2018-04-11] MEDS ORDERED: QVAR 80 MCG (23:59)
[2018-04-11] MEDS ORDERED: VENTOLIN HFA 90 MCG INHALER (23:59)
--- NOTE | 2018-04-12 | NUR ---
Patient came into ER ambulating with unsteady gait,unkempt and slurring speech at times. Patient denies drinking ETOH but smells of ETOH. Came in c/o left foot lac and left buttock lac. Patient does not remenber how he got his injuries or when it ocurred. Provided safety measures
--- NOTE | 2018-04-12 00:30 | NUR ---
Patient at times needs to be redirected to stay in room for his safety and sit on gurny.
[2018-04-12] MEDS: IPRATROPIUM BROMIDE 0.5 MG/2.5 ML NEBU NEB ONE (00:53)
[2018-04-12] MEDS: ALBUTEROL SULFATE 2.5 MG/3 ML NEBU NEB ONE (00:53)
[2018-04-12] MEDS ORDERED: ALBUTEROL SULFATE 2.5 MG/3 ML NEBU ONE (00:58)
[2018-04-12] MEDS ORDERED: IPRATROPIUM BROMIDE 0.5 MG/2.5 ML NEBU ONE (00:59)
[2018-04-12] MEDS ORDERED: methylPREDNISolone SOD SUCC 125 MG/2 ML VIAL ONE (01:00)
[2018-04-12] MEDS: methylPREDNISolone SOD SUCC 125 MG/2 ML VIAL IV ONE (01:02)
[2018-04-12 01:07] LABS: BASOPHILS # (AUTO) 0.1 K/uL (0.0-8.0); BASOPHILS % (AUTO) 0.9 % (0.0-2.0); EOSINOPHILS % (AUTO) 0.2 % (0.0-7.0); HEMOGLOBIN 15.6 g/dL (12.5-16.3); LYMPHOCYTES # (AUTO) 2.4 K/uL (20.0-40.0); LYMPHOCYTES % (AUTO) 29.2 % (20.5-51.5); MEAN CORPUSCULAR HEMOGLOBIN 35.2 uug (23.8-33.4); MEAN CORPUSCULAR HGB CONC 36 g/dL (32.5-36.3); MEAN CORPUSCULAR VOLUME 99.3 fL (73.0-96.2); MONOCYTES # (AUTO) 0.4 K/uL (2.0-10.0); NEUTROPHILS # (AUTO) 5.4 K/uL (1.8-8.9); NEUTROPHILS % (AUTO) 64.7 % (38.5-71.5); PLATELET COUNT (AUTO) 132 K/uL (152-348); RED BLOOD CELL COUNT(AUTO) 4.43 MIL/uL (4.06-5.63); WHITE BLOOD COUNT (AUTO) 8.3 K/uL (3.6-10.2)
[2018-04-12 01:18] LABS: CREATININE 0.8 mg/dL (0.6-1.3); POTASSIUM 3.2 mmol/L (3.5-5.1)
[2018-04-12 01:33] LABS: BILIRUBIN,DIRECT 0.2 mg/dL (0.0-0.2); BILIRUBIN,TOTAL 0.7 mg/dL (0.2-1.0); TOTAL PROTEIN, SERUM 7.9 g/dL (6.4-8.2)
[2018-04-12] MEDS ORDERED: methylPREDNISolone ACETATE 40 MG VIAL ONE (02:40)
[2018-04-12] MEDS: methylPREDNISolone ACETATE 40 MG VIAL IM ONE (02:46)
--- NOTE | 2018-04-12 03:01 | NUR ---
IV removed. Catheter intact and site benign. Pressure and 4x4 gauze applied to site. No bleeding noted.
--- NOTE | 2018-04-12 03:26 | NUR ---
Patient eloped from facility. ER physician notified.
== END 2018-04-12 03:28 | disposition left against medical advice (07) ==
LOC: ER 23:45
DX: T42.71XA Poisoning by unspecified antiepileptic and sedative-hypnotic drugs, accidental (unintentional), initial encounter (principal); J44.1 Chronic obstructive pulmonary disease with (acute) exacerbation; F10.10 Alcohol abuse, uncomplicated; Y92.89 Other specified places as the place of occurrence of the external cause
CPT/HCPCS: 36415; 70030-TC; 71045; 83605; 85025; 85730; 87040; 93005; A4663; G0480; J1030; J2930; J3590

== ENCOUNTER 2018-06-17 08:28 | Emergency (ER) | payer OTHER ==
[~2018-06-17] VITALS: Ht 177.8 cm; Wt 72.6 kg
[~2018-06-17 08:28] MED LIST changes: +HYDR-4354 PO; -HYDR-548 PO; +QVAR 80 MCG; +VENTOLIN HFA 90 MCG INHALER
[2018-06-17] MEDS: IPRATROPIUM BROMIDE 0.5 MG/2.5 ML NEBU NEB ONE (08:56)
[2018-06-17] MEDS: ALBUTEROL SULFATE 2.5 MG/3 ML NEBU NEB ONE (08:56)
[2018-06-17] MEDS ORDERED: DEXAMETHASONE SOD PHOSPHATE 10 MG INJ ONE (09:03)
[2018-06-17] MEDS ORDERED: ALBUTEROL SULFATE 2.5 MG/ 0.5 ML NEBU ONE (09:05)
[2018-06-17] MEDS ORDERED: IPRATROPIUM BROMIDE 0.5 MG/2.5 ML NEBU ONE (09:05)
[2018-06-17] MEDS: DEXAMETHASONE SOD PHOSPHATE 4 MG INJ IV ONE (09:07)
--- NOTE | 2018-06-17 09:20 | NUR ---
Patient is requesting muscle relaxant medicine- MD notified.
[2018-06-17 09:26] LABS: EOSINOPHILS # (AUTO) 0.1 K/uL (0.0-0.7); MONOCYTES # (AUTO) 0.7 K/uL (2.0-10.0)
[2018-06-17] MEDS ORDERED: diphenhydrAMINE 50 MG/1 ML VIAL ONE (09:30)
[2018-06-17 09:31] LABS: CREATININE 0.8 mg/dL (0.6-1.3); POTASSIUM 3.9 mmol/L (3.5-5.1)
[2018-06-17] MEDS: diphenhydrAMINE 50 MG/1 ML VIAL IV ONE (09:32)
--- NOTE | 2018-06-17 09:42 | NUR ---
Patient is resting comfortably in bed with eyes closed. PATIENT IS PAIN FREE AT THIS TIME.
[2018-06-17 09:46] LABS: BILIRUBIN,DIRECT 0.2 mg/dL (0.0-0.2); BILIRUBIN,TOTAL 1.2 mg/dL (0.2-1.0); TOTAL PROTEIN, SERUM 7.6 g/dL (6.4-8.2)
[2018-06-17 09:49] LABS: NEUTROPHILS # (AUTO) 4.5 K/uL (1.8-8.9)
[2018-06-17 09:58] LABS: BASOPHILS % (AUTO) 0.6 % (0.0-2.0); EOSINOPHILS % (AUTO) 0.8 % (0.0-7.0); HEMATOCRIT 42.5 % (36.7-47.1); HEMOGLOBIN 14.9 g/dL (12.5-16.3); LYMPHOCYTES # (AUTO) 1.6 K/uL (20.0-40.0); LYMPHOCYTES % (AUTO) 23.1 % (20.5-51.5); MEAN CORPUSCULAR HEMOGLOBIN 34.9 uug (23.8-33.4); MEAN CORPUSCULAR HGB CONC 35 g/dL (32.5-36.3); MEAN CORPUSCULAR VOLUME 99.2 fL (73.0-96.2); MONOCYTES % (AUTO) 9.6 % (0.0-11.0); NEUTROPHILS % (AUTO) 65.9 % (38.5-71.5); PLATELET COUNT (AUTO) 196 K/uL (152-348); RED BLOOD CELL COUNT(AUTO) 4.28 MIL/uL (4.06-5.63); WHITE BLOOD COUNT (AUTO) 6.8 K/uL (3.6-10.2)
--- NOTE | 2018-06-17 10:15 | NUR ---
'I want to go home." per patient's verbalization, MD notified.
--- NOTE | 2018-06-17 10:18 | NUR ---
Patient pulled his IV line & eloped from facility. ER physician notified.
== END 2018-06-17 10:18 | disposition left against medical advice (07) ==
LOC: ER 08:28
DX: J44.1 Chronic obstructive pulmonary disease with (acute) exacerbation (principal); R07.89 Other chest pain; F10.10 Alcohol abuse, uncomplicated; J45.909 Unspecified asthma, uncomplicated; Z79.51 Long term (current) use of inhaled steroids; Z79.899 Other long term (current) drug therapy
CPT/HCPCS: 36415; 71045; 80048; 80076; 83605; 83880; 84484; 85025; 87040 ×2; 93005; 94640; 96374; 96375; 99284; G0480; J1100; J1200; 70030-TC; A4663; J3590; J7030

== ENCOUNTER 2018-06-25 05:20 | Emergency (ER) | payer OTHER ==
[~2018-06-25] VITALS: Ht 177.8 cm; Wt 72.1 kg
[2018-06-25] MEDS ORDERED: PANTOPRAZOLE SODIUM 40 MG VIAL IV ONE (05:30)
[2018-06-25] MEDS ORDERED: IV NORMAL SALINE 1000 ML BAG IV ONE (05:30)
--- NOTE | 2018-06-25 05:32 | NUR ---
Pt ambulated in ER with the c/o SOB, CP, N/V x 2 days. Pt states that he was seen at [place] yesterday, but was discharged home. Pt appears unkempt and smells of ETOH. Pt denies hallucinations. Pt is AAO x 4 and speaking in complete sentences. Safe environment implemented.
--- NOTE | 2018-06-25 05:36 | NUR ---
Patient endorses ETOH use yesterday night. States he consumed Vodka.
[2018-06-25] MEDS: ONDANSETRON 4 MG/2 ML VIAL IV ONE ×2 (05:42→05:52)
[2018-06-25] MEDS ORDERED: ALBUTEROL SULFATE 2.5 MG/3 ML NEBU NEB ONE (05:45)
[2018-06-25] MEDS: LORAZEPAM 2 MG/1 ML VIAL IV ONE ×2 (05:45→05:54)
[2018-06-25] MEDS ORDERED: ALBUTEROL SULFATE 2.5 MG/3 ML NEBU ONE (05:45)
[2018-06-25] MEDS ORDERED: ONDANSETRON 4 MG/2 ML VIAL ONE (05:48)
[2018-06-25] MEDS ORDERED: LORAZEPAM 2 MG/1 ML VIAL ONE (05:48)
[2018-06-25] MEDS ORDERED: PANTOPRAZOLE SODIUM 40 MG VIAL ONE (05:48)
[2018-06-25 06:02] LABS: BASOPHILS # (AUTO) 0.1 K/uL (0.0-8.0); BASOPHILS % (AUTO) 0.7 % (0.0-2.0); EOSINOPHILS % (AUTO) 0.2 % (0.0-7.0); HEMOGLOBIN 14.5 g/dL (12.5-16.3); LYMPHOCYTES # (AUTO) 1.5 K/uL (20.0-40.0); LYMPHOCYTES % (AUTO) 13.3 % (20.5-51.5); MEAN CORPUSCULAR HEMOGLOBIN 34.4 uug (23.8-33.4); MEAN CORPUSCULAR HGB CONC 35 g/dL (32.5-36.3); MEAN CORPUSCULAR VOLUME 97.2 fL (73.0-96.2); MONOCYTES # (AUTO) 0.6 K/uL (2.0-10.0); MONOCYTES % (AUTO) 5.5 % (0.0-11.0); NEUTROPHILS # (AUTO) 9.3 K/uL (1.8-8.9); NEUTROPHILS % (AUTO) 80.3 % (38.5-71.5); PLATELET COUNT (AUTO) 153 K/uL (152-348); RED BLOOD CELL COUNT(AUTO) 4.22 MIL/uL (4.06-5.63); WHITE BLOOD COUNT (AUTO) 11.6 K/uL (3.6-10.2)
[2018-06-25 06:16] LABS: CREATININE 0.8 mg/dL (0.6-1.3); POTASSIUM 3.4 mmol/L (3.5-5.1)
[2018-06-25 06:32] LABS: BILIRUBIN,DIRECT 0.2 mg/dL (0.0-0.2); BILIRUBIN,TOTAL 0.8 mg/dL (0.2-1.0); TOTAL PROTEIN, SERUM 7.7 g/dL (6.4-8.2)
--- NOTE | 2018-06-25 06:48 | NUR ---
Assumed care for pt, pt resting with NAD noted at this time.
--- NOTE | 2018-06-25 07:59 | NUR ---
Pt is awake,alert and oriented, denies any pain or sob at this time. Pt is sitting in gurney and eating breakfast, no distress noted.
--- NOTE | 2018-06-25 09:50 | NUR ---
IV removed. Catheter intact and site benign. Pressure and 4x4 gauze applied to site. No bleeding noted.
--- NOTE | 2018-06-25 09:50 | NUR ---
Patient discharged to home in stable conditon. Written and verbal after care instructions given. Patient verbalizes understanding of instructions.
== END 2018-06-25 09:51 | disposition home or self-care (01) ==
LOC: ER 05:21
DX: R07.89 Other chest pain (principal); F10.10 Alcohol abuse, uncomplicated; J45.909 Unspecified asthma, uncomplicated; Z79.51 Long term (current) use of inhaled steroids; Z79.891 Long term (current) use of opiate analgesic; Z79.899 Other long term (current) drug therapy
CPT/HCPCS: 36415; 70450; 71045; 80048; 80076; 83690; 83880; 84484; 85025; 85730; 93005; 96374; 96375; 99284; C9113; J2060; J2405; 70030-TC; A4663; J7030

== ENCOUNTER 2018-12-13 04:55 | Emergency (ER) | payer OTHER ==
[~2018-12-13] VITALS: Ht 177.8 cm; Wt 79.4 kg
--- NOTE | 2018-12-13 05:09 | NUR ---
Dr. Lenz at bedside for MSE.
[2018-12-13] MEDS ORDERED: HYDROCODONE/APAP 10-325 MG TABLET PO ONE (05:15)
[2018-12-13] MEDS ORDERED: IV NORMAL SALINE 1000 ML BAG IV ONE (05:15)
[2018-12-13] MEDS ORDERED: methylPREDNISolone SOD SUCC 125 MG/2 ML VIAL IV ONE (05:15)
[2018-12-13] MEDS ORDERED: IPRATROPIUM BROMIDE 0.5 MG/2.5 ML NEBU NEB ONE (05:15)
[2018-12-13] MEDS ORDERED: NITROGLYCERIN OINT 1 GM PACKET TP ONE ×2 (05:15→05:26)
[2018-12-13] MEDS ORDERED: ALBUTEROL SULFATE 2.5 MG/3 ML NEBU NEB ONE (05:15)
[2018-12-13] MEDS ORDERED: ASPIRIN 81 MG TAB.CHEW PO ONE (05:15)
--- NOTE | 2018-12-13 05:20 | NUR ---
Respiratory at bedside
[2018-12-13] MEDS ORDERED: ALBUTEROL SULFATE 2.5 MG/3 ML NEBU ONE (05:21)
[2018-12-13] MEDS ORDERED: IPRATROPIUM BROMIDE 0.5 MG/2.5 ML NEBU ONE (05:22)
[2018-12-13] MEDS ORDERED: ASPIRIN 81 MG TAB.CHEW ONE (05:25)
[2018-12-13] MEDS ORDERED: methylPREDNISolone SOD SUCC 125 MG/2 ML VIAL ONE (05:25)
[2018-12-13] MEDS ORDERED: HYDROCODONE/APAP 10-325 MG TABLET ONE ×2 (05:26→05:29)
[2018-12-13 05:44] LABS: CREATININE 1.1 mg/dL (0.6-1.3); POTASSIUM 3.5 mmol/L (3.5-5.1)
--- NOTE | 2018-12-13 05:45 | NUR ---
Xray at bedside.
[2018-12-13 05:51] LABS: BASOPHILS # (AUTO) 0.1 K/uL (0.0-8.0); BASOPHILS % (AUTO) 0.7 % (0.0-2.0); EOSINOPHILS % (AUTO) 0.1 % (0.0-7.0); HEMATOCRIT 43.3 % (36.7-47.1); HEMOGLOBIN 14.9 g/dL (12.5-16.3); LYMPHOCYTES # (AUTO) 1.6 K/uL (20.0-40.0); LYMPHOCYTES % (AUTO) 19.2 % (20.5-51.5); MEAN CORPUSCULAR HEMOGLOBIN 33.2 uug (23.8-33.4); MEAN CORPUSCULAR HGB CONC 34 g/dL (32.5-36.3); MEAN CORPUSCULAR VOLUME 96.5 fL (73.0-96.2); MONOCYTES # (AUTO) 0.5 K/uL (2.0-10.0); MONOCYTES % (AUTO) 5.8 % (0.0-11.0); NEUTROPHILS # (AUTO) 6.1 K/uL (1.8-8.9); NEUTROPHILS % (AUTO) 74.2 % (38.5-71.5); PLATELET COUNT (AUTO) 185 K/uL (152-348); RED BLOOD CELL COUNT(AUTO) 4.48 MIL/uL (4.06-5.63); WHITE BLOOD COUNT (AUTO) 8.2 K/uL (3.6-10.2)
[2018-12-13 05:57] LABS: BILIRUBIN,DIRECT 0.3 mg/dL (0.0-0.2); BILIRUBIN,TOTAL 1.2 mg/dL (0.2-1.0); TOTAL PROTEIN, SERUM 7.4 g/dL (6.4-8.2)
--- NOTE | 2018-12-13 06:42 | NUR ---
Patient does not wish to proceed with medical care recommended by Dr. Betancur. Patient given information related to possible complications, up to and including , which could occur as a result of leaving the hospital at this time. Patient verbalizes understanding of risks involved due to leaving against medical advice. Patient left without signing the AMA form.
[2018-12-13 06:47] VITALS: BP 105/69
== END 2018-12-13 06:48 | disposition left against medical advice (07) ==
LOC: ER 04:58
DX: J45.909 Unspecified asthma, uncomplicated (principal); R07.9 Chest pain, unspecified; G89.4 Chronic pain syndrome; F17.210 Nicotine dependence, cigarettes, uncomplicated; Z71.6 Tobacco abuse counseling; Z79.899 Other long term (current) drug therapy
CPT/HCPCS: 36415; 71045; 80048; 80076; 83690; 83880; 84484; 85025; 93005; 94640; 96374; 99284; 99406; G0480; J2930; 70030-TC; A4663; J3590; J7030

== ENCOUNTER 2019-10-02 05:52 | Emergency (ER) | payer OTHER ==
[~2019-10-02] VITALS: Ht 177.8 cm; Wt 77.1 kg
--- NOTE | 2019-10-02 05:55 | NUR ---
Patient ambulating with steady gait. A&O x4. c/o chest wall pain 8/10 on pain scale with SOB x2 days. Patient also c/o right hip pain. Patient states CP non radiating. breathing even and unlabored. symmetrical chest rise noted. O2 sat at 95% on RA. cough noted. patient states he has hx of smoking. Speech is clear and able to make needs known / follow commands. Denies any / GI distress. Patient has been seen at [facility] yesterday for ABD pain and ETOH intoxication.
--- NOTE | 2019-10-02 06:05 | NUR ---
Dr. Chan at bedside for MSE
[2019-10-02 06:32] LABS: BASOPHILS # (AUTO) 0.1 K/uL (0.0-8.0); BASOPHILS % (AUTO) 0.9 % (0.0-2.0); EOSINOPHILS # (AUTO) 0.1 K/uL (0.0-0.7); EOSINOPHILS % (AUTO) 0.6 % (0.0-7.0); HEMATOCRIT 44.4 % (36.7-47.1); HEMOGLOBIN 15.6 g/dL (12.5-16.3); LYMPHOCYTES # (AUTO) 1.7 K/uL (20.0-40.0); LYMPHOCYTES % (AUTO) 21.2 % (20.5-51.5); MEAN CORPUSCULAR HGB CONC 35 g/dL (32.5-36.3); MEAN CORPUSCULAR VOLUME 96.3 fL (73.0-96.2); MONOCYTES # (AUTO) 0.7 K/uL (2.0-10.0); MONOCYTES % (AUTO) 8.8 % (0.0-11.0); NEUTROPHILS # (AUTO) 5.6 K/uL (1.8-8.9); NEUTROPHILS % (AUTO) 68.5 % (38.5-71.5); PLATELET COUNT (AUTO) 165 K/uL (152-348); RED BLOOD CELL COUNT(AUTO) 4.61 MIL/uL (4.06-5.63); WHITE BLOOD COUNT (AUTO) 8.1 K/uL (3.6-10.2)
--- NOTE | 2019-10-02 06:35 | NUR ---
Dr. Mcgee at bedside to evaluate patient
[2019-10-02 06:45] LABS: CREATININE 0.9 mg/dL (0.6-1.3); POTASSIUM 3.6 mmol/L (3.5-5.1)
[2019-10-02 06:51] LABS: BILIRUBIN,DIRECT 0.4 mg/dL (0.0-0.2); BILIRUBIN,TOTAL 1.8 mg/dL (0.2-1.0); TOTAL PROTEIN, SERUM 7.7 g/dL (6.4-8.2)
--- NOTE | 2019-10-02 06:58 | NUR ---
Patient does not wish to proceed with medical care recommended by Dr. Colin. Patient given information related to possible complications, up to and including , which could occur as a result of leaving the hospital at this time. Patient verbalizes understanding of risks involved due to leaving against medical advice. Patient has signed AMA form. IV removed. Catheter intact and site benign. Pressure and 4x4 gauze applied to site. No bleeding noted. Patient ambulating with steady gait
[2019-10-02 07:01] VITALS: BP 132/84
== END 2019-10-02 06:58 | disposition left against medical advice (07) ==
LOC: ER 05:56
DX: R06.00 Dyspnea, unspecified (principal); J44.9 Chronic obstructive pulmonary disease, unspecified; G89.29 Other chronic pain; M54.5 Low back pain; F17.210 Nicotine dependence, cigarettes, uncomplicated
CPT/HCPCS: 36415; 70030-TC; 71045; 85025; 93005; A4663

== ENCOUNTER 2021-11-05 11:57 | Emergency (ER) | payer MEDICAID, OTHER ==
[~2021-11-05] VITALS: Ht 175.3 cm; Wt 81.6 kg
[~2021-11-05 11:57] MED LIST changes: -HYDR-4354 PO; -QVAR 80 MCG; -VENTOLIN HFA 90 MCG INHALER
--- NOTE | 2021-11-05 12:35 | NUR ---
PT IS IN ROOM #1B. DR GUTIERREZ EVALUATED THE PT.
[2021-11-05] MEDS ORDERED: PANTOPRAZOLE SODIUM 40 MG TABLET.DR PO ONE ×2 (16:45→17:01)
[2021-11-05] MEDS ORDERED: MAG HYDROX/AL HYDROX/SIMETH 30 ML LIQUID UDC PO ONE (16:45)
[2021-11-05] MEDS ORDERED: LIDOCAINE VISCUS 2% 15 ML UDC MM ONE (16:45)
[2021-11-05] MEDS ORDERED: MAG HYDROX/AL HYDROX/SIMETH 30 ML LIQUID UDC ONE (17:00)
[2021-11-05] MEDS ORDERED: LIDOCAINE VISCUS 2% 15 ML UDC ONE (17:00)
[2021-11-05] MEDS ORDERED: ONDANSETRON 4 MG/2 ML VIAL IV ONE (17:00)
[2021-11-05] MEDS ORDERED: IV NORMAL SALINE 1000 ML BAG IV ONE ×2 (17:00→17:45)
[2021-11-05] MEDS ORDERED: ONDANSETRON 4 MG/2 ML VIAL ONE (17:01)
[2021-11-05 18:07] LABS: HEMATOCRIT 42.2 % (36.7-47.1); MEAN CORPUSCULAR HEMOGLOBIN 34.1 uug (23.8-33.4); MEAN CORPUSCULAR VOLUME 97.6 fL (73.0-96.2); PLATELET COUNT (AUTO) 143 K/uL (152-348)
[2021-11-05 18:12] LABS: CARBON DIOXIDE 27 mmol/L (21-32); CHLORIDE 100 mmol/L (98-107); CREATININE 0.8 mg/dL (0.6-1.3); GLUCOSE 91 mg/dL (74-106); POTASSIUM 3.3 mmol/L (3.5-5.1); UREA NITROGEN, BLOOD 16 mg/dL (7-18)
[2021-11-05 18:20] LABS: ALANINE AMINOTRANSFERASE 97 U/L (16-63); ALKALINE PHOSPHATASE 90 U/L (50-136); ASPARTATE AMINOTRANSFERASE 122 U/L (15-37); BILIRUBIN,DIRECT 0.2 mg/dL (0.0-0.2); BILIRUBIN,TOTAL 0.9 mg/dL (0.2-1.0); LIPASE 312 U/L (73-393); TOTAL PROTEIN, SERUM 7.1 g/dL (6.4-8.2)
[2021-11-06 04:03] VITALS: BP 125/75
--- NOTE | 2021-11-06 04:03 | NUR ---
Patient discharged to home in stable condition. Written and verbal after care instructions given. Patient verbalizes understanding of instructions. Stressed follow up or return to ER for worsening s/s. Patient out of ER with steady gait, ubered home, no acute signs of distress, VSS, all belongings taken, IV site discontinued.
== END 2021-11-06 04:04 | disposition home or self-care (01) ==
LOC: ER 11:57
DX: F10.229 Alcohol dependence with intoxication, unspecified (principal); Y90.8 Blood alcohol level of 240 mg/100 ml or more; F17.210 Nicotine dependence, cigarettes, uncomplicated; R07.9 Chest pain, unspecified; I45.2 Bifascicular block; Z82.49 Family history of ischemic heart disease and other diseases of the circulatory system; J45.909 Unspecified asthma, uncomplicated; Z79.899 Other long term (current) drug therapy
CPT/HCPCS: 36415; 71045; 80048; 80076; 80320; 83690; 84484 ×2; 85025; 85730; 93005; 96361; 96374; 99285; J2405; J7040; A4663; G0480

== ENCOUNTER 2022-08-07 01:14 | Emergency (ER) | payer MEDICAID ==
[~2022-08-07] VITALS: Ht 177.8 cm; Wt 81.6 kg
[2022-08-07 01:41] LABS: HEMATOCRIT 48.5 % (36.7-47.1); MEAN CORPUSCULAR HEMOGLOBIN 35.2 uug (23.8-33.4); PLATELET COUNT (AUTO) 204 K/uL (152-348)
[2022-08-07 01:49] LABS: CARBON DIOXIDE 26 mmol/L (21-32); CHLORIDE 98 mmol/L (98-107); CREATININE 1.2 mg/dL (0.6-1.3); GLUCOSE 131 mg/dL (74-106); UREA NITROGEN, BLOOD 23 mg/dL (7-18)
[2022-08-07 02:02] LABS: ALANINE AMINOTRANSFERASE 30 U/L (16-63); ALKALINE PHOSPHATASE 126 U/L (50-136); ASPARTATE AMINOTRANSFERASE 32 U/L (15-37); BILIRUBIN,DIRECT 0.1 mg/dL (0.0-0.2); BILIRUBIN,TOTAL 0.7 mg/dL (0.2-1.0); TOTAL PROTEIN, SERUM 8.3 g/dL (6.4-8.2)
--- NOTE | 2022-08-07 03:36 | NUR ---
Patient is sleeping in room.
[2022-08-07] MEDS ORDERED: LORAZEPAM 0.5 MG TABLET PO ONE (03:45)
[2022-08-07] MEDS ORDERED: LORAZEPAM 0.5 MG TABLET ONE (03:50)
--- NOTE | 2022-08-07 04:58 | NUR ---
Called [facility] for patient to get a ride home.
--- NOTE | 2022-08-07 05:11 | NUR ---
Patient discharged to home in stable condition. Written and verbal after care instructions given. Patient verbalizes understanding of instructions. Stressed follow up or return to ER for worsening s/s. Patient was picked up by [employer].
[2022-08-07 05:14] VITALS: BP 132/78
== END 2022-08-07 05:15 | disposition home or self-care (01) ==
LOC: ER 01:14
DX: J06.9 Acute upper respiratory infection, unspecified (principal); F10.229 Alcohol dependence with intoxication, unspecified; F41.9 Anxiety disorder, unspecified; I45.10 Unspecified right bundle-branch block; Y90.6 Blood alcohol level of 120-199 mg/100 ml; J44.9 Chronic obstructive pulmonary disease, unspecified
CPT/HCPCS: 36415; 71045; 84484; 85025; 93005; A4663; G0480

== ENCOUNTER 2022-08-15 15:26 | Emergency (ER) | payer MEDICAID ==
[~2022-08-15] VITALS: Ht 177.8 cm; Wt 81.6 kg
--- NOTE | 2022-08-15 15:30 | NUR ---
Dr Welch seen and evaluated pt.
[2022-08-15 16:01] LABS: HEMATOCRIT 43.6 % (36.7-47.1); MEAN CORPUSCULAR HEMOGLOBIN 34.6 uug (23.8-33.4); MEAN CORPUSCULAR VOLUME 100.7 fL (73.0-96.2); PLATELET COUNT (AUTO) 95 K/uL (152-348)
[2022-08-15 16:12] LABS: CREATININE 0.7 mg/dL (0.6-1.3); POTASSIUM 3.7 mmol/L (3.5-5.1)
[2022-08-15 16:18] LABS: BILIRUBIN,TOTAL 0.6 mg/dL (0.2-1.0); TOTAL PROTEIN, SERUM 7.8 g/dL (6.4-8.2)
[2022-08-15 16:25] LABS: EOSINOPHILS % (MANUAL) 2 % (0-8); LYMPHOCYTES % (MANUAL) 33 % (20-40); MONOCYTES % (MANUAL) 4 % (2-10); NEUTROPHILS % (MANUAL) 61 % (42-75)
[2022-08-15] MEDS ORDERED: ACETAMINOPHEN 325 MG TABLET PO ONE (16:45)
[2022-08-15 16:49] LABS: *BILIRUBIN,URIN NEGATIVE (NEGATIVE); *BLOOD, URINE NEGATIVE (NEGATIVE); *CLARITY,URINE CLEAR (CLEAR); *KETONES,URINE NEGATIVE (NEGATIVE); *UROBILINOGEN,URINE 0.2 E.U./dl (NORMAL); LEUKOCYTE ESTERASE ,URINE NEGATIVE (NEGATIVE); NITRITE, URINE NEGATIVE (NEGATIVE); UGLUCOSE NEGATIVE (NEGATIVE)
--- NOTE | 2022-08-15 16:52 | NUR ---
Pt c/o abdominal pain when provided acetaminophen, pt refused taking it. Dr Martin made aware.
[2022-08-15 16:54] LABS: *COLOR,URINE STRAW (YELLOW)
[2022-08-15 17:05] LABS: *AMPHETAMINE, URINE NEGATIVE (NEGATIVE); *CANNABINOID, URINE NEGATIVE (NEGATIVE); *COCCAINE, URINE NEGATIVE (NEGATIVE); *PHENCYCLIDINE SCREEN,URINE NEGATIVE (NEGATIVE)
--- NOTE | 2022-08-15 17:05 | NUR ---
Patient eloped from facility. ER physician notified.
== END 2022-08-15 17:05 | disposition left against medical advice (07) ==
LOC: ER 15:28
DX: R10.32 Left lower quadrant pain (principal); F10.20 Alcohol dependence, uncomplicated; Y90.8 Blood alcohol level of 240 mg/100 ml or more; J44.9 Chronic obstructive pulmonary disease, unspecified; F17.210 Nicotine dependence, cigarettes, uncomplicated; Z53.20 Procedure and treatment not carried out because of patient's decision for unspecified reasons; I45.2 Bifascicular block
CPT/HCPCS: 36415; 70030-TC; 71045; 83690; 84484; 85025; 93005; A4663; G0480

== ENCOUNTER 2022-10-23 20:56 | Emergency (ER) | payer MEDICAID, OTHER ==
[~2022-10-23] VITALS: Ht 177.8 cm; Wt 81.6 kg
[2022-10-23 21:17] LABS: HEMATOCRIT 46.4 % (36.7-47.1); MEAN CORPUSCULAR HEMOGLOBIN 34.1 uug (23.8-33.4); MEAN CORPUSCULAR VOLUME 100.7 fL (73.0-96.2); PLATELET COUNT (AUTO) 178 K/uL (152-348)
[2022-10-23 21:36] LABS: CARBON DIOXIDE 31 mmol/L (21-32); CHLORIDE 104 mmol/L (98-107); CREATININE 0.8 mg/dL (0.6-1.3); GLUCOSE 95 mg/dL (74-106); POTASSIUM 3.9 mmol/L (3.5-5.1); UREA NITROGEN, BLOOD 7 mg/dL (7-18)
--- NOTE | 2022-10-23 21:58 | NUR ---
Patient c/o abd pain. notified
[2022-10-23] MEDS ORDERED: MAG HYDROX/AL HYDROX/SIMETH 30 ML LIQUID UDC PO ONE (22:00)
[2022-10-23] MEDS ORDERED: FAMOTIDINE 20 MG TABLET ONE (22:00)
[2022-10-23] MEDS ORDERED: LIDOCAINE VISCUS 2% 15 ML UDC MM ONE (22:00)
[2022-10-23] MEDS ORDERED: FAMOTIDINE 20 MG TABLET PO ONE (22:00)
[2022-10-23] MEDS ORDERED: MAG HYDROX/AL HYDROX/SIMETH 30 ML LIQUID UDC ONE (22:01)
[2022-10-23 22:18] LABS: BILIRUBIN,DIRECT 0.1 mg/dL (0.0-0.2); BILIRUBIN,TOTAL 0.4 mg/dL (0.2-1.0); TOTAL PROTEIN, SERUM 7.5 g/dL (6.4-8.2)
--- NOTE | 2022-10-23 23:06 | NUR ---
Patient unable to sign consent for CTA - due to alcohol intoxication. Consent signed by Dr Valentino.
[2022-10-23] MEDS ORDERED: IV NORMAL SALINE 250 ML IV ONE (23:19)
[2022-10-23] MEDS ORDERED: SWABABLE VALVE TRANSFER SET EA MC ONE (23:19)
[2022-10-23] MEDS ORDERED: IOHEXOL 350 100 ML INFUS..BTL ONE (23:19)
--- NOTE | 2022-10-23 23:34 | NUR ---
Patient taken to CT by vj Starr
[2022-10-24] MEDS ORDERED: ONDANSETRON 4 MG/2 ML VIAL ONE (01:40)
[2022-10-24] MEDS ORDERED: ONDANSETRON 4 MG/2 ML VIAL IV ONE (01:45)
[2022-10-24] MEDS ORDERED: ACETAMINOPHEN 325 MG TABLET ONE (02:21)
[2022-10-24] MEDS ORDERED: ACETAMINOPHEN 325 MG TABLET PO ONE (02:30)
[2022-10-24] MEDS ORDERED: IBUPROFEN 400 MG TABLET ONE (02:44)
[2022-10-24] MEDS ORDERED: IBUPROFEN 400 MG TABLET PO ONE (02:45)
--- NOTE | 2022-10-24 03:54 | NUR ---
Patient discharged to home in stable condition. Written and verbal after care instructions given. Patient verbalizes understanding of instructions. Stressed follow up or return to ER for worsening s/s. Patient is a/ox4, NAD noted. patient ambulated with steady gait
[2022-10-24 03:55] VITALS: BP 116/76
== END 2022-10-24 03:57 | disposition home or self-care (01) ==
LOC: ER 20:58
DX: F10.129 Alcohol abuse with intoxication, unspecified (principal); R07.89 Other chest pain; R51.9 Headache, unspecified; J44.9 Chronic obstructive pulmonary disease, unspecified; G89.29 Other chronic pain; R10.9 Unspecified abdominal pain; F17.210 Nicotine dependence, cigarettes, uncomplicated; Z79.899 Other long term (current) drug therapy; Y90.9 Presence of alcohol in blood, level not specified
CPT/HCPCS: 99285; 70450; 71045; 80076; 80048; 83690; 85025; 85379; 84484 ×2; 36415; 93005; 71275; 96374; Q9967; J2405; A4663

== ENCOUNTER 2022-11-09 19:10 | Emergency (ER) | payer OTHER ==
--- NOTE | 2022-11-09 20:00 | NUR ---
Patient was called to be triaged but was not present in the waiting roomor outside of ER.
--- NOTE | 2022-11-09 20:30 | NUR ---
Patient was called to be triaged but was not present in the waiting roomor outside of ER.
--- NOTE | 2022-11-09 21:00 | NUR ---
Patient was called to be triaged but was not present in the waiting roomor outside of ER. PATIENT WAS NOT TRAIGED OR SEEN BY ERMD.
== END 2022-11-09 21:00 | disposition left against medical advice (07) ==
LOC: ER 19:12
DX: Z53.21 Procedure and treatment not carried out due to patient leaving prior to being seen by health care provider (principal)

== ENCOUNTER 2023-01-23 04:47 | Emergency (ER) | payer OTHER ==
[~2023-01-23] VITALS: Ht 177.8 cm; Wt 81.6 kg
--- NOTE | 2023-01-23 04:56 | NUR ---
EKG DONE AT BEDSIDE.
--- NOTE | 2023-01-23 05:00 | NUR ---
PT AMB TO RM 2A WITH C/O CP AND SOB.
--- NOTE | 2023-01-23 05:10 | NUR ---
PT PLACED ON MONITOR AND O2/3L VIA N/C. MD AT BEDSIDE FOR EVAL.
[2023-01-23] MEDS ORDERED: FAMOTIDINE. 20 MG/2 ML VIAL IV ONE ×2 (05:15→05:56)
[2023-01-23 05:53] LABS: HEMATOCRIT 42.5 % (36.7-47.1); MEAN CORPUSCULAR HEMOGLOBIN 33.7 uug (23.8-33.4); MEAN CORPUSCULAR VOLUME 99.2 fL (73.0-96.2); PLATELET COUNT (AUTO) 141 K/uL (152-348)
[2023-01-23 06:02] LABS: CARBON DIOXIDE 29 mmol/L (21-32); CHLORIDE 102 mmol/L (98-107); CREATININE 0.8 mg/dL (0.6-1.3); POTASSIUM 3.9 mmol/L (3.5-5.1); UREA NITROGEN, BLOOD 9 mg/dL (7-18)
[2023-01-23 06:09] LABS: ALANINE AMINOTRANSFERASE 71 U/L (16-63); ALKALINE PHOSPHATASE 124 U/L (50-136); ASPARTATE AMINOTRANSFERASE 79 U/L (15-37); BILIRUBIN,DIRECT 0.2 mg/dL (0.0-0.2); LIPASE 186 U/L (73-393)
[2023-01-23 06:14] VITALS: O2SAT 98
[2023-01-23] MEDS ORDERED: IPRATROPIUM BROMIDE 0.5 MG/2.5 ML NEBU NEB ONE (06:15)
[2023-01-23] MEDS ORDERED: ALBUTEROL SULFATE 2.5 MG/3 ML NEBU NEB ONE (06:15)
[2023-01-23] MEDS ORDERED: ALBUTEROL SULFATE 2.5 MG/3 ML NEBU ONE (06:19)
[2023-01-23] MEDS ORDERED: IPRATROPIUM BROMIDE 0.5 MG/2.5 ML NEBU ONE (06:20)
[2023-01-23 06:27] VITALS: O2SAT 98
[2023-01-23 06:30] VITALS: O2SAT 98
--- NOTE | 2023-01-23 06:50 | NUR ---
Patient does not wish to proceed with medical care recommended by ( ). Patient given information related to possible complications, up to and including , which could occur as a result of leaving the hospital at this time. Patient verbalizes understanding of risks involved due to leaving against medical advice. Patient has signed AMA form. Pt amb out with steady gait.
== END 2023-01-23 06:50 | disposition left against medical advice (07) ==
LOC: ER 04:56
DX: R10.13 Epigastric pain (principal); J44.9 Chronic obstructive pulmonary disease, unspecified; F10.129 Alcohol abuse with intoxication, unspecified; F17.210 Nicotine dependence, cigarettes, uncomplicated; Z71.6 Tobacco abuse counseling; Z79.899 Other long term (current) drug therapy; Y90.6 Blood alcohol level of 120-199 mg/100 ml
CPT/HCPCS: 80076; 80048; 83880; 83690; 85025; 85730; 84484; 36415; 93005; 94640; 99284; 96374; 80320; J3490; A4663; G0480; J3590

== ENCOUNTER 2023-01-24 13:55 | Emergency (ER) | payer OTHER ==
[~2023-01-24] VITALS: Ht 177.8 cm; Wt 81.6 kg
--- NOTE | 2023-01-24 13:56 | NUR ---
STEVE EARLY CHILDHOOD EDUCATION SPECIALIST FROM HOME, INFORMED OF PLAN OF CARE AND PLACED ON MONITOR. PATIENT AWAITING ER PROVIDER EXAM. HORTENCIA S/S OF ANY DISTRESS NOTED AT THIS TIME.
--- NOTE | 2023-01-24 14:05 | NUR ---
AT BEDSIDE FOR EXAM.
[2023-01-24] MEDS ORDERED: IPRATROPIUM BROMIDE 0.5 MG/2.5 ML NEBU NEB ONE (14:15)
[2023-01-24] MEDS ORDERED: IV NORMAL SALINE 1000 ML BAG IV ONE (14:15)
[2023-01-24] MEDS ORDERED: FAMOTIDINE 20 MG TABLET PO ONE (14:15)
[2023-01-24] MEDS ORDERED: ALBUTEROL SULFATE 2.5 MG/3 ML NEBU NEB ONE (14:15)
[2023-01-24 14:16] VITALS: O2SAT 90
[2023-01-24] MEDS ORDERED: ALBUTEROL SULFATE 2.5 MG/3 ML NEBU ONE (14:16)
[2023-01-24] MEDS ORDERED: IPRATROPIUM BROMIDE 0.5 MG/2.5 ML NEBU ONE (14:16)
--- NOTE | 2023-01-24 14:18 | NUR ---
RESPIRATORY AT BEDSIDE.
[2023-01-24 14:32] VITALS: O2SAT 100
[2023-01-24] MEDS ORDERED: FAMOTIDINE 20 MG TABLET ONE (14:41)
--- NOTE | 2023-01-24 14:48 | NUR ---
Ivf infusing as per order.
--- NOTE | 2023-01-24 14:57 | NUR ---
Patient requested IV be removed, removed per request at this time, MD aware.
--- NOTE | 2023-01-24 15:04 | NUR ---
Patient MD batsheva aware.
--- NOTE | 2023-01-24 15:05 | NUR ---
Kumar escobedo in [facility] - 01/24/23 at 1507 by LUAN Patient back Mzd aware, water given.
--- NOTE | 2023-01-24 15:07 | NUR ---
Patient back MD aware, water given.
--- NOTE | 2023-01-24 15:38 | NUR ---
Patient discharged to home in stable condition. Written and verbal after care instructions given. Patient verbalizes understanding of instructions. Stressed follow up or return to ER for worsening s/s. Pt walked out of ER w/ steady gait.
[2023-01-24 15:39] VITALS: BP 144/68; O2SAT 97
== END 2023-01-24 15:40 | disposition home or self-care (01) ==
LOC: ER 13:55
DX: F10.129 Alcohol abuse with intoxication, unspecified (principal); K29.20 Alcoholic gastritis without bleeding; J44.9 Chronic obstructive pulmonary disease, unspecified; F17.210 Nicotine dependence, cigarettes, uncomplicated; Z79.899 Other long term (current) drug therapy; Y90.9 Presence of alcohol in blood, level not specified
CPT/HCPCS: 99283; 99406; 94640; J7040; A4663; J3590

== ENCOUNTER 2023-03-21 09:37 | Emergency (ER) | payer OTHER ==
[~2023-03-21] VITALS: Ht 175.3 cm; Wt 81.6 kg
[~2023-03-21 09:37] MED LIST changes: -ALPR0.5T8 PO
[2023-03-21] MEDS ORDERED: IV NORMAL SALINE 1000 ML BAG IV ONE (10:00)
[2023-03-21] MEDS ORDERED: FAMOTIDINE. 20 MG/2 ML VIAL IV ONE ×2 (10:00→10:14)
[2023-03-21] MEDS ORDERED: ONDANSETRON 4 MG/2 ML VIAL IV ONE (10:00)
[2023-03-21 10:09] LABS: BASOPHILS # (AUTO) 0.1 K/UL (0.0-0.2); BASOPHILS % (AUTO) 0.9 % (0.0-2.0); EOSINOPHILS # (AUTO) 0.1 K/uL (0.0-0.7); EOSINOPHILS % (AUTO) 1.5 % (0.0-7.0); HEMATOCRIT 44.2 % (36.7-47.1); HEMOGLOBIN 15.1 g/dL (12.5-16.3); LYMPHOCYTES # (AUTO) 1.4 K/uL (0.8-4.8); LYMPHOCYTES % (AUTO) 23.2 % (20.5-51.5); MEAN CORPUSCULAR HEMOGLOBIN 33.6 uug (23.8-33.4); MEAN CORPUSCULAR HGB CONC 34 g/dL (32.5-36.3); MEAN CORPUSCULAR VOLUME 98.3 fL (73.0-96.2); MONOCYTES # (AUTO) 0.3 K/uL (0.1-1.30); MONOCYTES % (AUTO) 5.5 % (0.0-11.0); NEUTROPHILS % (AUTO) 68.9 % (38.5-71.5); PLATELET COUNT (AUTO) 131 K/uL (152-348); RED CELL DISTRIBUTION WIDTH 14.2 % (12.1-16.2); WHITE BLOOD COUNT (AUTO) 5.9 K/uL (3.6-10.2)
[2023-03-21 10:12] LABS: DIFFERENTIAL COMMENT 1
[2023-03-21] MEDS ORDERED: ONDANSETRON 4 MG/2 ML VIAL ONE (10:13)
[2023-03-21 10:21] LABS: CALCIUM 8.5 mg/dL (8.5-10.1); CARBON DIOXIDE 29 mmol/L (21-32); CHLORIDE 101 mmol/L (98-107); CREATININE 0.9 mg/dL (0.6-1.3); GLUCOSE 79 mg/dL (74-106); POTASSIUM 3.7 mmol/L (3.5-5.1); SODIUM SERUM 140 mmol/L (136-145); UREA NITROGEN, BLOOD 15 mg/dL (7-18)
[2023-03-21 10:35] LABS: ALANINE AMINOTRANSFERASE 73 U/L (16-63); ALKALINE PHOSPHATASE 96 U/L (50-136); ASPARTATE AMINOTRANSFERASE 81 U/L (15-37); BILIRUBIN,DIRECT 0.2 mg/dL (0.0-0.2); BILIRUBIN,TOTAL 0.8 mg/dL (0.2-1.0); TOTAL PROTEIN, SERUM 7.4 g/dL (6.4-8.2)
[2023-03-21 10:41] LABS: ACETAMINOPHEN < 2.0 ug/mL (10-30); ETHANOL 271 MG/DL (0-10)
[2023-03-21] MEDS ORDERED: ONDA4TAB5 PO (11:10)
[2023-03-21] MEDS ORDERED: FAMO-132 PO (11:10)
[2023-03-21 11:24] VITALS: BP 124/66; O2SAT 97
== END 2023-03-21 11:32 | disposition home or self-care (01) ==
LOC: ER 09:37
DX: F10.129 Alcohol abuse with intoxication, unspecified (principal); K29.20 Alcoholic gastritis without bleeding; J44.9 Chronic obstructive pulmonary disease, unspecified; R07.89 Other chest pain; F17.210 Nicotine dependence, cigarettes, uncomplicated; Z79.899 Other long term (current) drug therapy; Y90.1 Blood alcohol level of 20-39 mg/100 ml
CPT/HCPCS: 80076; 80048; 83690; 85025; 93005; 71045; 99285; 96361; 96374; 96375; 80299; 80320; 80307; J3490; J2405; J7040; 36415; A4663; G0480

== ENCOUNTER 2023-04-30 22:56 | Emergency (ER) | payer OTHER ==
[~2023-04-30] VITALS: Ht 175.3 cm; Wt 81.6 kg
[~2023-04-30 22:56] MED LIST changes: +FAMO-132 PO; +ONDA4TAB5 PO
[2023-04-30] MEDS ORDERED: MAGNESIUM SULFATE 2 GM in IV DEXTROSE 5% 100 ML IV ONE (23:30)
[2023-04-30] MEDS ORDERED: IV NORMAL SALINE 1000 ML BAG IV ONE (23:30)
[2023-04-30] MEDS ORDERED: THIAMINE HCL 100 MG TABLET PO ONE (23:30)
[2023-04-30 23:47] LABS: BASOPHILS % (AUTO) 0.6 % (0.0-2.0); DIFFERENTIAL COMMENT 1; EOSINOPHILS % (AUTO) 0.9 % (0.0-7.0); HEMATOCRIT 25.3 % (36.7-47.1); HEMOGLOBIN 8.5 g/dL (12.5-16.3); LYMPHOCYTES # (AUTO) 0.7 K/uL (0.8-4.8); MEAN CORPUSCULAR HGB CONC 34 g/dL (32.5-36.3); MEAN CORPUSCULAR VOLUME 98.3 fL (73.0-96.2); MONOCYTES # (AUTO) 0.5 K/uL (0.1-1.30); MONOCYTES % (AUTO) 10.4 % (0.0-11.0); NEUTROPHILS # (AUTO) 3.6 K/uL (1.8-8.9); NEUTROPHILS % (AUTO) 74.1 % (38.5-71.5); PLATELET COUNT (AUTO) 238 K/uL (152-348); RED BLOOD CELL COUNT(AUTO) 2.57 MIL/uL (4.06-5.63); RED CELL DISTRIBUTION WIDTH 18.7 % (12.1-16.2); WHITE BLOOD COUNT (AUTO) 4.9 K/uL (3.6-10.2)
[2023-04-30] MEDS ORDERED: THIAMINE HCL 100 MG TABLET ONE (23:49)
[2023-04-30] MEDS ORDERED: MAGNESIUM SULFATE 1 GM/2 ML VIAL ONE (23:49)
[2023-04-30] MEDS ORDERED: MAGNESIUM SULFATE/D5W 100 ML ONE (23:49)
[2023-05-01 00:01] LABS: MAGNESIUM 1.9 mg/dL (1.8-2.4)
[2023-05-01 00:03] LABS: ETHANOL < 3 MG/DL (0-10)
[2023-05-01 00:05] LABS: CALCIUM 8.8 mg/dL (8.5-10.1); CARBON DIOXIDE 30 mmol/L (21-32); CHLORIDE 98 mmol/L (98-107); GLUCOSE 129 mg/dL (74-106); POTASSIUM 3.6 mmol/L (3.5-5.1); SODIUM SERUM 134 mmol/L (136-145); UREA NITROGEN, BLOOD 7 mg/dL (7-18)
[2023-05-01 00:17] LABS: ALANINE AMINOTRANSFERASE 31 U/L (16-63); ALBUMIN 3.2 g/dL (3.4-5.0); ALKALINE PHOSPHATASE 120 U/L (50-136); ASPARTATE AMINOTRANSFERASE 31 U/L (15-37); BILIRUBIN,DIRECT 0.2 mg/dL (0.0-0.2); BILIRUBIN,TOTAL 0.4 mg/dL (0.2-1.0); NT-PRO BNP 353 pg/mL (0-125); TOTAL PROTEIN, SERUM 7.2 g/dL (6.4-8.2)
[2023-05-01] MEDS ORDERED: ALBU18HF2 INH (00:44)
[2023-05-01] MEDS ORDERED: ACET1TAB23 PO (00:44)
[2023-05-01] MEDS ORDERED: DOXY100C5 PO (00:44)
[2023-05-01] MEDS ORDERED: ONDANSETRON 4 MG/2 ML VIAL ONE (00:52)
[2023-05-01] MEDS ORDERED: HYDROMORPHONE 1 MG/1 ML DISP.SYRIN ONE (00:52)
[2023-05-01] MEDS ORDERED: HYDROMORPHONE 1 MG/1 ML DISP.SYRIN IV ONE (01:00)
[2023-05-01] MEDS ORDERED: ONDANSETRON 4 MG/2 ML VIAL IV ONE (01:00)
[2023-05-01 01:03] VITALS: BP 130/85; TEMP 98.5; O2SAT 100
== END 2023-05-01 01:03 | disposition home or self-care (01) ==
LOC: ER 22:59
DX: R10.13 Epigastric pain (principal); D64.9 Anemia, unspecified; J44.9 Chronic obstructive pulmonary disease, unspecified; F17.210 Nicotine dependence, cigarettes, uncomplicated; Z79.899 Other long term (current) drug therapy
CPT/HCPCS: 80076; 80048; 83880; 83735; 85025; 85379; 85730; 84484; 36415; 93005; 71045; 99285; 80320; 96365; 96375; J3475 ×3; J2405; J1170; A4606; A4663; G0480

== ENCOUNTER 2024-02-17 17:41 | Emergency (ER) | payer MEDICARE, OTHER ==
[~2024-02-17] VITALS: Ht 172.7 cm; Wt 71.7 kg
[~2024-02-17 17:41] MED LIST changes: +ACET1TAB23 PO; +ALBU18HF2 INH; +DOXY100C5 PO
[2024-02-17] MEDS: IV NORMAL SALINE 1000 ML BAG IV ONE (18:01)
[2024-02-17] MEDS ORDERED: THIAMINE HCL 200 MG/2 ML VIAL ONE (18:11)
[2024-02-17] MEDS ORDERED: MAGNESIUM SULFATE/D5W 100 ML ONE ×2 (18:11→19:10)
[2024-02-17] MEDS: THIAMINE HCL 200 MG/2 ML VIAL IV ONE (18:18)
[2024-02-17] MEDS: MAGNESIUM SULFATE/D5W 100 ML IV SCH (18:22)
[2024-02-17 18:24] VITALS: O2SAT 99
[2024-02-17] MEDS: ALBUTEROL SULFATE 2.5 MG/3 ML NEBU NEB ONE ×2 (18:24→21:51)
[2024-02-17] MEDS ORDERED: methylPREDNISolone SOD SUCC 125 MG/2 ML VIAL ONE (18:24)
[2024-02-17] MEDS: IPRATROPIUM BROMIDE 0.5 MG/2.5 ML NEBU NEB ONE ×2 (18:24→21:50)
[2024-02-17] MEDS ORDERED: CEFTRIAXONE /D5W 50ML IVPB **ER PYXIS IV ONE (18:24)
[2024-02-17] MEDS ORDERED: ALBUTEROL SULFATE 2.5 MG/3 ML NEBU ONE ×2 (18:26→21:58)
[2024-02-17] MEDS ORDERED: IPRATROPIUM BROMIDE 0.5 MG/2.5 ML NEBU ONE ×3 (18:26→21:59)
[2024-02-17] MEDS: methylPREDNISolone SOD SUCC 125 MG/2 ML VIAL IV ONE (18:35)
[2024-02-17] MEDS: CEFTRIAXONE 1 G in IV DEXTROSE 5% 50 ML IV ONE (18:36)
[2024-02-17 18:38] LABS: BASOPHILS # (AUTO) 0.1 K/UL (0.0-0.2); BASOPHILS % (AUTO) 0.8 % (0.0-2.0); EOSINOPHILS # (AUTO) 0.1 K/uL (0.0-0.7); EOSINOPHILS % (AUTO) 1.5 % (0.0-7.0); HEMATOCRIT 45.3 % (36.7-47.1); HEMOGLOBIN 15.3 g/dL (12.5-16.3); LYMPHOCYTES # (AUTO) 2.1 K/uL (0.8-4.8); LYMPHOCYTES % (AUTO) 30.8 % (20.5-51.5); MEAN CORPUSCULAR HEMOGLOBIN 30.7 uug (23.8-33.4); MEAN CORPUSCULAR HGB CONC 34 g/dL (32.5-36.3); MEAN CORPUSCULAR VOLUME 90.9 fL (73.0-96.2); MONOCYTES # (AUTO) 0.5 K/uL (0.1-1.30); MONOCYTES % (AUTO) 7.1 % (0.0-11.0); NEUTROPHILS % (AUTO) 59.8 % (38.5-71.5); PLATELET COUNT (AUTO) 185 K/uL (152-348); RED BLOOD CELL COUNT(AUTO) 4.98 MIL/uL (4.06-5.63); RED CELL DISTRIBUTION WIDTH 15.1 % (12.1-16.2); WHITE BLOOD COUNT (AUTO) 6.7 K/uL (3.6-10.2)
[2024-02-17 18:39] VITALS: O2SAT 99
[2024-02-17 18:39] LABS: DIFFERENTIAL COMMENT 1; POTASSIUM 3.7 mmol/L (3.5-5.1)
[2024-02-17 18:40] LABS: CALCIUM 8.5 mg/dL (8.5-10.1); CREATININE 0.9 mg/dL (0.6-1.3)
[2024-02-17 18:45] LABS: ALBUMIN 3.9 g/dL (3.4-5.0); BILIRUBIN,DIRECT 0.2 mg/dL (0.0-0.2); BILIRUBIN,TOTAL 0.6 mg/dL (0.2-1.0); TOTAL PROTEIN, SERUM 7.8 g/dL (6.4-8.2)
[2024-02-17 22:05] VITALS: O2SAT 98
[2024-02-17 22:35] VITALS: O2SAT 99
[2024-02-17] MEDS ORDERED: KETOROLAC TROMETHAMINE 15 MG INJ ONE (22:48)
[2024-02-17] MEDS: KETOROLAC TROMETHAMINE 15 MG INJ IVP ONE (22:52)
[2024-02-17 23:05] VITALS: O2SAT 98
[2024-02-18] MEDS ORDERED: MORPHINE SULFATE 4 MG/1 ML DISP.SYRIN ONE (01:24)
[2024-02-18] MEDS ORDERED: ONDANSETRON 4 MG/2 ML VIAL ONE (01:24)
[2024-02-18] MEDS: MORPHINE SULFATE 4 MG/1 ML DISP.SYRIN IV ONE (01:28)
[2024-02-18] MEDS: ONDANSETRON 4 MG/2 ML VIAL IV ONE (01:28)
[2024-02-18 02:20] LABS: HEMATOCRIT 41.5 % (36.7-47.1); MEAN CORPUSCULAR HEMOGLOBIN 30.8 uug (23.8-33.4); WHITE BLOOD COUNT (AUTO) 4.2 K/uL (3.6-10.2)
[2024-02-18 02:23] LABS: BASOPHILS % (AUTO) 0.2 % (0.0-2.0); EOSINOPHILS % (AUTO) 0.1 % (0.0-7.0); HEMOGLOBIN 13.9 g/dL (12.5-16.3); LYMPHOCYTES # (AUTO) 0.4 K/uL (0.8-4.8); LYMPHOCYTES % (AUTO) 9.6 % (20.5-51.5); MEAN CORPUSCULAR HGB CONC 34 g/dL (32.5-36.3); MEAN CORPUSCULAR VOLUME 91.7 fL (73.0-96.2); MONOCYTES % (AUTO) 0.6 % (0.0-11.0); NEUTROPHILS # (AUTO) 3.8 K/uL (1.8-8.9); NEUTROPHILS % (AUTO) 89.5 % (38.5-71.5); PLATELET COUNT (AUTO) 154 K/uL (152-348); RED BLOOD CELL COUNT(AUTO) 4.52 MIL/uL (4.06-5.63); RED CELL DISTRIBUTION WIDTH 14.7 % (12.1-16.2)
[2024-02-18 02:24] LABS: CALCIUM 8.1 mg/dL (8.5-10.1); CARBON DIOXIDE 25 mmol/L (21-32); CHLORIDE 101 mmol/L (98-107); GLUCOSE 261 mg/dL (74-106); POTASSIUM 3.8 mmol/L (3.5-5.1); SODIUM SERUM 138 mmol/L (136-145); UREA NITROGEN, BLOOD 15 mg/dL (7-18)
[2024-02-18] MEDS ORDERED: LORAZEPAM 2 MG/1 ML VIAL ONE ×2 (02:24→04:08)
[2024-02-18] MEDS ORDERED: THIAMINE HCL 200 MG/2 ML VIAL ONE (02:25)
[2024-02-18] MEDS: LORAZEPAM 2 MG/1 ML VIAL IV ONE ×2 (02:28→04:11)
[2024-02-18] MEDS: THIAMINE HCL 200 MG/2 ML VIAL IV ONE (02:28)
[2024-02-18 02:30] LABS: DIFFERENTIAL COMMENT 1
[2024-02-18 02:34] LABS: LACTIC ACID 3.4 mmol/L (0.4-2.0)
[2024-02-18] MEDS ORDERED: PIPERACILLIN/TAZO 4.5 GM VIAL IV ONE (02:43)
[2024-02-18 02:46] LABS: ALANINE AMINOTRANSFERASE 37 U/L (16-63); ALBUMIN 3.7 g/dL (3.4-5.0); ALKALINE PHOSPHATASE 111 U/L (50-136); ASPARTATE AMINOTRANSFERASE 43 U/L (15-37); BILIRUBIN,DIRECT 0.2 mg/dL (0.0-0.2); BILIRUBIN,TOTAL 0.5 mg/dL (0.2-1.0); LIPASE 30 U/L (16-77); TOTAL PROTEIN, SERUM 7.4 g/dL (6.4-8.2)
[2024-02-18] MEDS: PIPERACILLIN SODIUM/TAZOBACTAM 4.5 G in IV DEXTROSE 5% 50 ML IV SCH (03:02)
[2024-02-18] MEDS: IV NORMAL SALINE 1000 ML BAG IV ONE (03:02)
[2024-02-18 03:36] LABS: *BILIRUBIN,URIN NEGATIVE (NEGATIVE); *BLOOD, URINE NEGATIVE (NEGATIVE); *CLARITY,URINE CLEAR (CLEAR); *COLOR,URINE YELLOW (YELLOW); *KETONES,URINE TRACE (NEGATIVE); *PROTEIN,URINE NEGATIVE (NEGATIVE); *UROBILINOGEN,URINE 0.2 E.U./dl (NORMAL); LEUKOCYTE ESTERASE ,URINE NEGATIVE (NEGATIVE); NITRITE, URINE NEGATIVE (NEGATIVE); UGLUCOSE TRACE (NEGATIVE)
[2024-02-18 04:00] LABS: *AMPHETAMINE, URINE NEGATIVE (NEGATIVE); *BARBITURATE, URINE NEGATIVE (NEGATIVE); *BENZODIAZEPINE, URINE NEGATIVE (NEGATIVE); *CANNABINOID, URINE NEGATIVE (NEGATIVE); *COCCAINE, URINE NEGATIVE (NEGATIVE); *OPIATE, URINE POSITIVE (NEGATIVE); *PHENCYCLIDINE SCREEN,URINE NEGATIVE (NEGATIVE); FENTANYL, URINE NEGATIVE (NEGATIVE)
[2024-02-18 06:23] VITALS: BP 159/90; O2SAT 94
[2024-02-18] MEDS ORDERED: LORAZEPAM 2 MG/1 ML VIAL IV PRN (06:30)
[2024-02-18] MEDS ORDERED: ONDANSETRON 4 MG/2 ML VIAL IV PRN (06:30)
[2024-02-18] MEDS ORDERED: REMEDY ESSENTIAL ZINC PASTE 113 GM TP PRN (06:30)
[2024-02-18] MEDS ORDERED: IV NS 1000 ML 1,000 ML IV PRN (06:30)
[2024-02-18] MEDS ORDERED: PANTOPRAZOLE SODIUM 40 MG VIAL IV SCH (09:00)
[2024-02-18] MEDS ORDERED: PIPERACILLIN SODIUM/TAZOBACTAM 3.375 G in IV DEXTROSE 5% 50 ML IV SCH (12:00)
== END 2024-02-18 06:23 | disposition left against medical advice (07) ==
LOC: ER 17:42
DX: R10.9 Unspecified abdominal pain (principal); F10.239 Alcohol dependence with withdrawal, unspecified; F10.229 Alcohol dependence with intoxication, unspecified; J44.9 Chronic obstructive pulmonary disease, unspecified; F17.200 Nicotine dependence, unspecified, uncomplicated; Z20.822 Contact with and (suspected) exposure to COVID-19; Z79.899 Other long term (current) drug therapy; Z79.52 Long term (current) use of systemic steroids; Z60.2 Problems related to living alone; Y90.0 Blood alcohol level of less than 20 mg/100 ml
CPT/HCPCS: 80076 ×2; 80048 ×2; 81003; 83735; 85025 ×2; 87426; 36415 ×2; 93005 ×2; 71045 ×2; 94644; 99291; 96365; 96366; 96368; 96375 ×2; 80320; 80307; 83690; 85730; 87040 ×2; 84484; 74176; 96367; 96376; 83605 ×2; J0696; J1885; J3475 ×2; J2919; J3411 ×2; J7040 ×2; J2060 ×2; J2405; J2543; J2270; A4606; A4663; G0480; J3590